=== PATIENT | female | born 1960 | race Caucasian/White ===

== ENCOUNTER → 2016-11-13 | Outpatient (CLI) | payer BC ==
--- NOTE | 2016-11-14 09:27 | WWHP ---
DATE OF SERVICE: 11/13/2016 CHIEF COMPLAINT: The patient is here for her routine gynecologic exam and mammogram. HPI: This is a 56-year-old, G2, P2 with an LMP of 2006. The patient is without gynecologic complaints. PAST MEDICAL HISTORY: Osteopenia, postural vertigo and elevated cholesterol. Her primary care physician is Dr. Ma. Medications are unchanged from 10/19/2014 H&P. Allergies to CODEINE. PAST SURGICAL HISTORY: Parathyroid tumor removed in the past; laparoscopic tubal ligation; colonoscopy x3 and her most recent one was in 2012. SOCIAL HISTORY: She denies tobacco and drug use and has about 1 to 2 alcoholic drinks per week. 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 FAMILY HISTORY: Mother and grandfather had CVA. Sister also had a CVA. Grandmother had an OH. Father had pancreatic cancer. REVIEW OF SYSTEMS: Weight has been stable. RESPIRATORY: She is getting over a cold. She denies cardiac or GI problems. PHYSICAL EXAM: Blood pressure 131/79. Height 5 feet 1-1/2 inches. Weight 146 pounds. Temperature 98.5, pulse 69. This is a well-developed, well-nourished white female who is alert and oriented x3 in no acute distress. HEENT is within normal limits. NECK: Supple without mass or thyromegaly. CHEST AND LUNGS: Clear to auscultation. HEART: Regular rate and rhythm. Breasts are without mass or discharge. Axillary exam is negative for adenopathy. BACK: Negative for CVA tenderness. ABDOMEN: Soft, nontender, without palpable masses. PELVIC EXAM: External genitalia reveals mild atrophy without lesions. Cervix and vagina reveal mild atrophy without lesions. There is no evidence of prolapse. The uterus is midposition, nongravid size and nontender. There are no palpable adnexal masses or tenderness. Rectovaginal exam is negative for mass or tenderness and is negative for occult blood. EXTREMITIES: Nontender. IMPRESSION: 1. A 56-year-old menopausal female with normal gynecologic exam. 2. History of osteopenia. 3. The patient continues to use HRT for menopausal symptoms as prescribed by Dr. Luzmaria Barreto. PLAN: 1. Pap smear was performed. 2. Self breast examination was discussed with the patient. 3. Mammogram will be done today. 4. Osteoporosis prevention was discussed. Bone density screening is recommended and a slip was given to the patient for this. 5. She will return in one year.
--- NOTE | 2016-11-15 11:39 | MM ---
Reason for exam: screening (asymptomatic). Last mammogram was performed 1 year and 1 month ago. History: Patient is postmenopausal. Took hormonal contraceptives for 3 months beginning at age 19. Took estrogen for 2 years 7 months. Taking progesterone for 5 years. Physical Findings: A clinical breast exam by your physician is recommended on an annual basis and results should be correlated with mammographic findings. MG Screening Mammo w CAD Bilateral CC and MLO view(s) were taken. Prior study comparison: October 11, 2015, bilateral MG screening mammo w CAD. October 19, 2014, bilateral MG screening mammo w CAD. October 13, 2013, bilateral digital screening mammo w/CAD. The breast tissue is heterogeneously dense. This may lower the sensitivity of mammography. No significant changes when compared with prior studies. ASSESSMENT: Negative, BI-RAD 1 RECOMMENDATION: Routine screening mammogram of both breasts in 1 year.
== END | disposition home or self-care (01) ==
LOC: WWCWWP 15:49
PROVIDERS: ATTEND Obstetrics & Gynecology
DX: Z12.31 Encounter for screening mammogram for malignant neoplasm of breast (principal)

== ENCOUNTER → 2017-01-24 | Outpatient (CLI) | payer BC ==
--- NOTE | 2017-01-24 22:06 | MR ---
EXAMINATION TYPE: MR shoulder RT wo con DATE OF EXAM: 01/24/2017 COMPARISON: Right shoulder 11/06/2016 HISTORY: Right shoulder Pain TECHNIQUE: Multiplanar, multisequence imaging of the right shoulder is performed without contrast. FINDINGS: Rotator Cuff: There is abnormal thickening of the rotator cuff, abnormal increased signal within the substance suggestive of tendinosis possible partial thickness tear posteriorly, underlying geodes pre sent in the humeral head. No jacklyn rotator cuff tear is present. Acromioclavicular Joint: Hypertrophic change of the acromioclavicular joint causes mass effect on the musculotendinous junction of supraspinatus, fluid signal present in the subacromial subdeltoid bursa , there is a distal acromial spur. Glenohumeral Joint: Intact Labrum: The labrum appears grossly intact given limitation of non-arthrogram study. Biceps Tendon: Fluid signal is present along the long head of biceps tendon shows normal position Bone marrow signal: Essentially maintained other than previously described Other: No additional significant abnormality is appreciated. IMPRESSION: Tendinosis, there may be a partial tear posteriorly of the rotator cuff which is small. Correlate for impingement. Additional findings above.
== END | disposition home or self-care (01) ==
LOC: RADMRIMAIN 20:33
PROVIDERS: ATTEND Orthopaedic Surgery
DX: M67.813 Other specified disorders of tendon, right shoulder (principal)

== ENCOUNTER → 2017-06-26 | Day surgery (SDC) | payer BC ==
[2017-06-21 16:19] VITALS: BMI 26.6
--- NOTE | 2017-06-25 16:19 | HP ---
HISTORY AND PHYSICAL REASON FOR ADMISSION: Surgery is 06/26/2017. Maricarmen Harper is a 57-year-old patient seen with progressive right shoulder pain. We discussed treatment options. She elected post right shoulder arthroscopy. Consent was obtained. PAST MEDICAL HISTORY: Hypothyroidism. PAST SURGICAL HISTORY: Tubal ligation. MEDICATIONS: Thyroid and vitamins. ALLERGIES: CODEINE. SOCIAL HISTORY: Patient denies tobacco use. PHYSICAL EVALUATION OF THE RIGHT SHOULDER: Flexion 170 degrees, abduction 170 degrees, external rotation 50 degrees with some mild weakness. There is tenderness along the anterolateral acromion and rotator cuff insertion site. Impingement positive 100 degrees. Distal neurovascular exam is intact. RADIOGRAPHS: Right shoulder radiographs revealed a type 2 anterior acromion and acromioclavicular joint osteoarthritis. An MRI of right shoulder revealed impingement with partial rotator cuff tear. IMPRESSION: Right shoulder impingement with partial rotator cuff tear. PLAN: Right shoulder arthroscopy with subacromial decompression, possible arthroscopic rotator cuff repair, possible Ary procedure and debridement. Surgery 06/26/2017. MMODL / IJN: [id number] /
[~2017-06-26] MED LIST: DEXAMETHASONE SOD PHOSPHATE 10 MG/ML 1 ML VIAL IV ONE; HYDROmorphone 0.5 MG/0.5 ML SYRINGE IVP PRN; LACTATED RINGERS 1,000 ML IV SCH; LIDOCAINE 1% 20 ML VIAL (10MG/ML) FOR IV START INTRADERMA ONE; LIDOCAINE 1% 20 ML VIAL (10MG/ML) FOR IV START INTRADERMA PRN; LIDOCAINE 1% INJ 10MG/ML (20 ML MDV) ONE; LIDOCAINE 2%-EPI 1:100,000 20 ML VIAL ONE; MIDAZOLAM 2 MG/2 ML VIAL IV PRN; MIDAZOLAM 2 MG/2 ML VIAL ONE; ONDANSETRON 4 MG/2 ML VIAL IVP ONE; ONDANSETRON 4 MG/2 ML VIAL ONE; PROPOFOL 10 MG/ML 20 ML VIAL IV ONE; ROPIVACAINE 5 MG/ML 30 ML VIAL ONE; SCOPOLAMINE 1.5MG/72HR PATCH TRANSDERM ONE; SUCCINYLCHOLINE CHLORIDE 100 MG/5 ML SYR IV ONE; ceFAZolin IN SWFI 2 GM/20 ML SYRINGE IVP ONE; ePHEDrine SULFATE/0.9% NACL/PF 50 MG/5 ML SYRINGE IV ONE; fentaNYL (PF) 50 MCG/ML 2 ML AMP ONE
--- NOTE | 2017-06-26 12:42 | P.OP ---
Date of Procedure: 06/26/17 Preoperative Diagnosis: Right shoulder impingement Postoperative Diagnosis: 1. Right shoulder rotator cuff tear 2. Right shoulder impingement 3. Right shoulder acromioclavicular joint osteoarthritis 4. Right shoulder partial biceps tendon tear 5. Right shoulder superficial anterior labral tear Procedure(s) Performed: 1. Right shoulder arthroscopic rotator cuff repair 2. Right shoulder arthroscopic subacromial decompression 3. Right shoulder arthroscopic Ary procedure 4. Right shoulder arthroscopic biceps tenotomy 5. Right shoulder arthroscopic debridement labral tear Implants: 1-5.5 peek anchor Anesthesia: GETA, regional (Interscalene block) Surgeon: Jesus Tran Sewer Inspector #1: Fran Patel Estimated Blood Loss (ml): 10 Pathology: none sent Condition: stable Disposition: PACU Indications for Procedure: 57-year-old patient seen with progressive right shoulder pain. After treatment options were discussed, she elected to proceed with arthroscopy. Operative Findings: See description of procedure Description of Procedure: Patient underwent a shoulder block by department of anesthesia. The patient was then taken to the operative suite. The patient underwent a general anesthetic by the department of anesthesia. The patient was placed into a lateral position and secured. There was appropriate padding of the bony prominence. Right shoulder was then prepped and draped in normal sterile orthopedic fashion. We placed the extremity in 10 pounds of longitudinal traction. A posterior incision was now made for a posterior working portal site. The trocar and cannula were inserted into the glenohumeral joint. Arthroscopy was initiated. Spinal needle was now inserted anteriorly, to ascertain the anterior working portal site. An incision was now made in that area, a trocar was inserted followed by a probe. There was superficial tearing noted of the anterior and superior labrum. There was partial tearing long head biceps tendon. Grade 1 chondral malacia changes of the glenoid but no osteochondral tears. The posterior and inferior labrum were intact. There were no loose bodies. I performed an arthroscopic biceps tenotomy. I debrided the labral tears down to stable tissue. The residual labrum was probed and found to be stable. Instruments removed from the glenohumeral joint. Utilizing the posterior working portal site, the trocar and cannula were inserted into the subacromial space. Arthroscopy initiated. I made an incision 2 fingerbreadths lateral to the acromion. I introduced my trocar followed by my [employer]throCare ablator. I now began ablating thick subacromial bursal tissue, which exposed the undersurface of the anterior acromion. This was diminished subacromial space. There was a very prominent anterior acromion. A motorized bur was introduced and a subacromial decompression was performed. I also excised some osteophytes off the inferior aspect of the distal clavicle. The AC joint was visualized and noted to be fairly arthritic. Our motorized bur was introduced in the anterior portal site and a Ary procedure was performed without difficulty, decompressing the AC joint nicely. I turned my attention to the rotator cuff. We noted some partial tearing distal supraspinatus. We probed the area and noted an obvious through and through perforation. I used a motorized shaver to debride the area getting down to stable rotator cuff tendon tissue. We had approximate 1-1.5 cm tear freely mobile over the footprint. I abraded the footprint with a motorized bur. I introduced 2 everted mattress sutures through good bites of rotator cuff tendon I repaired the tendon utilizing one single 5.5 peek anchor compressing the tendon along the footprint very nicely. The suture limbs were clipped. We had a good stable repair. Instruments now removed from the portal sites. All portal sites were approximated with nylon suture. Sterile dressings were applied followed by a shoulder immobilizer. Shashank TIMMONS assisted with the procedure. The patient was awakened, transferred to a bed, and taken to recovery in stable condition.
[2017-06-26 12:49] VITALS: TEMP 96.9
[2017-06-26 13:32] VITALS: RESP 16
[2017-06-26 14:13] VITALS: BP 120/62; PULSE 63
--- NOTE | 2017-06-26 17:29 | P.ONQ ---
Anesthesiology Proc Note - PNB - Peripheral Nerve Block Performed Right Interscalene Indication: Acute Post-Operative Pain, Requested by physician (Dr Tran) Sedation Type: Sedate with meaningful contact maintained Preparation: Sterile Prep Position: Supine Needle Types: Other (see comment) (Ellen) Needle Size: 50mm (2") Needle Gauge: 20 Injectate: 2.0% Lidocaine (see comment for volume) (Ropivicaine 0.5% 14cc, Lidocaine 2% 14cc, 1:100,000 epi) Blood Aspirated: No Pain Paresthesia on Injection Noted: No Resistance on Injection: Normal Events: Uneventful and Well Tolerated
== END | disposition home or self-care (01) ==
LOC: OR 08:51
PROVIDERS: ATTEND Orthopaedic Surgery
DX: M75.101 Unspecified rotator cuff tear or rupture of right shoulder, not specified as traumatic (principal); M25.811 Other specified joint disorders, right shoulder; S46.111A Strain of muscle, fascia and tendon of long head of biceps, right arm, initial encounter; S43.401A Unspecified sprain of right shoulder joint, initial encounter; X58.XXXA Exposure to other specified factors, initial encounter; M94.211 Chondromalacia, right shoulder; M25.711 Osteophyte, right shoulder; E03.9 Hypothyroidism, unspecified; Z79.899 Other long term (current) drug therapy; Z88.5 Allergy status to narcotic agent
CPT/HCPCS: 64415; 29826; 29827; 29824; C1713; J2250; J1100; J0690; J2405; J2001; J3010; J2795; J0330; J2704

== ENCOUNTER → 2017-12-10 | Outpatient (CLI) | payer BC ==
[2017-12-10 08:25] VITALS: BP 109/74; PULSE 69; RESP 16; TEMP 98.1; BMI 26.6
--- NOTE | 2017-12-10 08:54 | P.HPOB ---
History of Present Illness H&P Date: 12/10/17 Chief Complaint: The patient is here for her routine gynecologic exam and mammogram. This is a 57-year-old with an LMP of 2006. The patient is without gynecologic complaints and denies any postmenopausal bleeding. Review of Systems She has lost 5 pounds over the last year. She denies respiratory, cardiac, or G.I. problems. Past Medical History Past Medical History: Hyperlipidemia (Diet controlled), Osteoarthritis (OA), Thyroid Disorder (Hypothyroid) Additional Past Medical History / Comment(s): benign postural vertigo, parathyroid tumor, and osteopenia. 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 She had to vaginal deliveries. 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 - Past Family History Father Family Medical History: Cancer Additional Family Medical History / Comment(s): pancreas cancer Mother Family Medical History: CVA/TIA Medications and Allergies Home Medications Medication Instructions Recorded Confirmed Type 7-Keto Dhea /Pregnenolone 1 cap PO DAILY 01/21/14 06/26/17 History Bi-Est 1 applic TOPICAL DAILY 01/21/14 06/26/17 History Multivitamins, Thera [Multivitamin] 1 each PO DAILY 01/21/14 06/21/17 History Progesterone S R 165 mg PO HS 01/21/14 06/26/17 History Thyroid,Pork [[place] Thyroid] 30 mg PO DAILY 01/21/14 06/21/17 History Fish Oil/Dha/Epa [Fish Oil 1,200 1 each PO DAILY 06/21/17 06/21/17 History mg Fish Oil] Testosterone Cream 0.75 mg TOPICAL DAILY 06/21/17 06/26/17 History Hydrocodone/Acetaminophen [[place] 1 each PO Q6HR PRN #30 tab 06/26/17 Rx 5-325] Ondansetron HCl [Zofran] 4 mg PO DIRECTED PRN #30 tablet 06/26/17 Rx Allergies Allergy/AdvReac Type Severity Reaction Status Date / Time codeine AdvReac Nausea Verified 06/26/17 09:10 Exam - Vital Signs Vital signs: Vital Signs Temp Pulse Resp BP 12/10/17 08:06 98.1 F 69 16 109/74 Intake and Output 12/09/17 12/10/17 12/10/17 22:59 06:59 14:59 Other: Weight 63.957 kg Height 5'1", BMI 26.6. This is a well-developed well-nourished white female who is alert and oriented times 3 in no acute distress. HEENT: Within normal limits. NECK: Supple without mass or thyromegaly. CHEST AND LUNGS: Clear to auscultation. HEART: Regular rate and rhythm. BREASTS: Are without mass or discharge. AXILLARY EXAM: Negative for adenopathy. BACK: Negative for CVA tenderness. ABDOMEN: Soft, nontender, without palpable masses. PELVIC EXAM: Normal external genitalia with mild atrophy. Cervix and vagina appear normal with mild atrophy. There is no unusual discharge. There is no evidence of prolapse. The uterus is midposition, nongravid size and nontender. There are no palpable adnexal masses or tenderness. RECTAL EXAM: rectovaginal exam is negative for mass or tenderness and is negative for occult blood. EXTREMITIES: Nontender. There is a benign appearing mall on the backside of the right upper arm that is benign appearing and measures approximately 8 mm. She states she will be seeing Dr. Gabriel to have this checked out. IMPRESSION: 1. 57-year-old menopausal female with normal gynecologic exam. 2. History of osteopenia PLAN: 1. Smear was deferred since she had a normal one last year. 2. Self breast awareness was discussed. 3. Screening mammogram will be done today. 4. Osteoporosis prevention was discussed. We will repeat her bone density test in approximately 2 years since her last one was done in July 2017. 5. She will return one year.
--- NOTE | 2017-12-12 11:28 | MM ---
Reason for exam: screening (asymptomatic). Last mammogram was performed 1 year and 1 month ago. History: Patient is postmenopausal. Took hormonal contraceptives for 3 months beginning at age 19. Took estrogen for 2 years 7 months. Taking progesterone for 5 years. Physical Findings: A clinical breast exam by your physician is recommended on an annual basis and results should be correlated with mammographic findings. MG Screening Mammo w CAD Bilateral CC and MLO view(s) were taken. Prior study comparison: November 13, 2016, bilateral MG screening mammo w CAD. October 11, 2015, bilateral MG screening mammo w CAD. The breast tissue is heterogeneously dense. This may lower the sensitivity of mammography. Global asymmetry right upper outer quadrant. No significant changes when compared with prior studies. ASSESSMENT: Negative, BI-RAD 1 RECOMMENDATION: Routine screening mammogram of both breasts in 1 year.
== END | disposition home or self-care (01) ==
LOC: WWCWWP 08:05
PROVIDERS: ATTEND Obstetrics & Gynecology
DX: Z12.31 Encounter for screening mammogram for malignant neoplasm of breast (principal)
CPT/HCPCS: 77067

== ENCOUNTER → 2019-01-21 | Outpatient (CLI) | payer BC ==
[2019-01-21 10:51] VITALS: BP 132/83; PULSE 61; RESP 16; TEMP 97.6; BMI 27.2
--- NOTE | 2019-01-21 11:48 | P.HPOB ---
History of Present Illness H&P Date: 01/21/19 Chief Complaint: The patient is here for her routine gynecologic exam and ma mmogram. This is a 50-year-old with an LMP of 2006. The patient denies any postmenopausal bleeding. She has been noticing slight urinary leakage when her bladder is full and when she sneezes. She is otherwise without complaints. Review of Systems The patient has gained 8 pounds over the last year. She denies respiratory, cardiac, or G.I. problems. Past Medical History Past Medical History: Hyperlipidemia, Osteoarthritis (OA), Thyroid Disorder Additional Past Medical History / Comment(s): benign postural vertigo, parathyroid tumor, and osteopenia. 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 She had to vaginal deliveries. History of Any Multi-Drug Resistant Organisms: None Reported Past Surgical History: Tubal Ligation Additional Past Surgical History / Comment(s): Parathyroid tumor removed. 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 - Past Family History Father Family Medical History: Cancer Additional Family Medical History / Comment(s): pancreas cancer Mother Family Medical History: CVA/TIA Sister(s) Family Medical History: CVA/TIA Medications and Allergies Home Medications Medication Instructions Recorded Confirmed Type 7-Keto Dhea /Pregnenolone 1 cap PO DAILY 01/21/14 06/26/17 History Bi-Est 1 applic TOPICAL DAILY 01/21/14 06/26/17 History Multivitamins, Thera [Multivitamin] 1 each PO DAILY 01/21/14 06/21/17 History Progesterone S R 165 mg PO HS 01/21/14 06/26/17 History Thyroid,Pork [[place] Thyroid] 45 mg PO DAILY 01/21/14 06/21/17 History Fish Oil/Dha/Epa [Fish Oil 1,200 1 each PO DAILY 06/21/17 06/21/17 History mg Fish Oil] Testosterone Cream 0.75 mg TOPICAL DAILY 06/21/17 06/26/17 History Calcium Carbonate [Calcium] 600 mg PO 01/21/19 History Cholecalciferol (Vitamin D3) 2,000 unit PO 01/21/19 History [Vitamin D3] Allergies Allergy/AdvReac Type Severity Reaction Status Date / Time codeine AdvReac Nausea Verified 01/21/19 10:57 Exam Vital Signs Temp Pulse Resp BP Pulse Ox 01/21/19 10:45 97.6 F 61 16 132/83 98 Intake and Output 01/20/19 01/21/19 01/21/19 22:59 06:59 14:59 Other: Weight 67.585 kg Height 5'2", weight 149 pounds, BMI 27.3. This is a well-developed well-nourished white female who is alert and oriented times 3 in no acute distress. HEENT: Within normal limits. NECK: Supple without mass or thyromegaly. CHEST AND LUNGS: Clear to auscultation. HEART: Regular rate and rhythm. BREASTS: Are without mass or discharge. AXILLARY EXAM: Negative for adenopathy. BACK: Negative for CVA tenderness. ABDOMEN: Soft, nontender, without palpable masses. PELVIC EXAM: Normal external genitalia with mild atrophy. Cervix and vagina appear normal with mild atrophy. There is no unusual discharge. There is no evidence of prolapse. The uterus is midposition, nongravid size and nontender. There are no palpable adnexal masses or tenderness. RECTAL EXAM: rectovaginal exam is negative for mass or tenderness and is negative for occult blood. EXTREMITIES: Nontender. IMPRESSION: 1. 58-year-old menopausal female with normal gynecologic exam. 2. Mild stress urinary incontinence with full bladder and coughing or sneezing. There are no significant physical findings at this time. 3. History of osteopenia. PLAN: 1. Pap smear was performed. 2. Self breast awareness was discussed with the patient. 3. Screening mammogram will be done today. 4. Osteoporosis prevention was discussed. I have stressed the importance of adequate calcium, vitamin D and regular exercise. Recommended amounts of calciu m and vitamin D were also discussed. Her last bone density test was done a little more than one year ago. I have recommended that she do this after approximate 2 years. She would like to do this next year at her annual exam. 5. We have discussed Kegal exercises and timed avoids. Instructions were given to the patient on these. She will try to do sets of 20 Kegal's TID. 6.She was advised to return in one year for her annual well woman exam.
--- NOTE | 2019-01-22 09:35 | MM ---
Reason for exam: screening (asymptomatic). Last mammogram was performed 1 year and 1 month ago. History: Patient is postmenopausal. Took hormonal contraceptives for 3 months beginning at age 19. Took estrogen for 2 years 7 months. Taking progesterone for 5 years. Physical Findings: A clinical breast exam by your physician is recommended on an annual basis and results should be correlated with mammographic findings. MG Screening Mammo w CAD Bilateral CC and MLO view(s) were taken. Prior study comparison: December 10, 2017, bilateral MG screening mammo w CAD. November 13, 2016, bilateral MG screening mammo w CAD. The breast tissue is heterogeneously dense. This may lower the sensitivity of mammography. No significant changes when compared with prior studies. ASSESSMENT: Benign, BI-RAD 2 RECOMMENDATION: Routine screening mammogram of both breasts in 1 year.
--- NOTE | 2019-01-27 18:38 | P.PN ---
Progress Note - Text Progress Note Date: 01/27/19 OUTPATIENT FOLLOW-UP NOTE TEST(S)/RESULTS: test results from 01/21/2019 include negative Pap smear and benign mammogram. METHOD OF NOTIFICATION: the patient was notified by phone. PATIENT COMMENTS: the patient is happy to hear these results. DIAGNOSIS: negative Pap smear and benign mammogram. DISCUSSION: PLAN: the patient is to return in one year for her annual well woman exam.
== END ==
LOC: WWCWWP 10:38
PROVIDERS: ATTEND Obstetrics & Gynecology
DX: Z12.31 Encounter for screening mammogram for malignant neoplasm of breast (principal)
CPT/HCPCS: 77067

== ENCOUNTER 2019-03-04 09:39 | Day surgery (SDC) | payer BC ==
[2019-03-02 10:46] VITALS: BMI 27.3
[~2019-03-04 09:39] MED LIST changes: -DEXAMETHASONE SOD PHOSPHATE 10 MG/ML 1 ML VIAL IV ONE; -HYDROmorphone 0.5 MG/0.5 ML SYRINGE IVP PRN; -LIDOCAINE 1% 20 ML VIAL (10MG/ML) FOR IV START INTRADERMA ONE; -LIDOCAINE 1% INJ 10MG/ML (20 ML MDV) ONE; -LIDOCAINE 2%-EPI 1:100,000 20 ML VIAL ONE; -MIDAZOLAM 2 MG/2 ML VIAL IV PRN; -MIDAZOLAM 2 MG/2 ML VIAL ONE; -ONDANSETRON 4 MG/2 ML VIAL IVP ONE; -ONDANSETRON 4 MG/2 ML VIAL ONE; -PROPOFOL 10 MG/ML 20 ML VIAL IV ONE; -ROPIVACAINE 5 MG/ML 30 ML VIAL ONE; -SCOPOLAMINE 1.5MG/72HR PATCH TRANSDERM ONE; -SUCCINYLCHOLINE CHLORIDE 100 MG/5 ML SYR IV ONE; -ceFAZolin IN SWFI 2 GM/20 ML SYRINGE IVP ONE; -ePHEDrine SULFATE/0.9% NACL/PF 50 MG/5 ML SYRINGE IV ONE; -fentaNYL (PF) 50 MCG/ML 2 ML AMP ONE
[2019-03-04 10:55] VITALS: TEMP 98.2
[2019-03-04] MEDS ORDERED: PROPOFOL 10 MG/ML 20 ML VIAL IV ONE (11:07)
[2019-03-04] MEDS ORDERED: LIDOCAINE 1% INJ 10MG/ML (20 ML MDV) ONE (11:07)
--- NOTE | 2019-03-04 11:26 | P.PCN ---
Date of Procedure: 03/04/19 Procedure(s) Performed: BRIEF HISTORY: Patient is a 58-year-old pleasant white female scheduled for an elective colonoscopy as a part of evaluation of prior history of colon polyps. Her last colonoscopy was 5 years ago. PROCEDURE PERFORMED: Colonoscopy. PREOPERATIVE DIAGNOSIS: History of colon polyps. IV sedation per Anesthesia. PROCEDURE: After informed consent was obtained, the patient, was brought into the endoscopy unit. IV sedation was administered by Anesthesia under continuous monitoring. Digital rectal examination was normal. Initially the Olympus CF-160 flexible video colonoscope was then inserted in the rectum, gradually advanced into the cecum without any difficulty. Careful examination was performed as the scope was gradually being withdrawn. Ileocecal valve and the appendiceal orifice were visualized and appeared normal. Prep was excellent. Mucosa of the cecum, ascending colon, transverse colon, descending colon, sigmoid colon, and rectum appeared normal. Scattered sigmoid diverticulosis. Retroflexion was performed in the rectum and no lesions were seen. The patient tolerated the procedure well. IMPRESSION: Normal-appearing colon from rectum to cecum with no evidence of colorectal neoplasia Scattered sigmoidal diverticulosis . RECOMMENDATIONS: Findings of this examination were discussed with the patient as well as a family. She was advised to have a repeat screening colonoscopy in 5 years from now because of the prior history of colon polyps.
[2019-03-04 11:32] VITALS: RESP 18
[2019-03-04 11:55] VITALS: BP 122/67; PULSE 50
== END 2019-03-04 12:18 | disposition home or self-care (01) ==
LOC: ORWHC2ENDO 09:39
PROVIDERS: ATTEND Internal Medicine Gastroenterology
DX: Z12.11 Encounter for screening for malignant neoplasm of colon (principal); Z86.010 Personal history of colon polyps; K57.30 Diverticulosis of large intestine without perforation or abscess without bleeding; Z88.5 Allergy status to narcotic agent; E07.9 Disorder of thyroid, unspecified; E78.5 Hyperlipidemia, unspecified; M19.90 Unspecified osteoarthritis, unspecified site; Z79.899 Other long term (current) drug therapy
CPT/HCPCS: J2001; J2704; G0105; 45378

== ENCOUNTER 2019-05-28 09:50 | Day surgery (SDC) | payer BC ==
[2019-05-26 12:20] VITALS: BMI 27.3
--- NOTE | 2019-05-27 13:33 | HP ---
HISTORY AND PHYSICAL Surgery is 05/28/2019. Maricarmen Harper is a 59-year-old patient seen with progressive left knee pain. We discussed treatment options. She elected to proceed with left knee arthroscopy. Consent was obtained her. PAST MEDICAL HISTORY: Her past medical history is hypothyroidism. PAST SURGICAL HISTORY: Tubal ligation, shoulder arthroscopy, hysterectomy. DAILY MEDICATIONS: 1. Thyroid. 2. Aspirin. 3. Vitamins. ALLERGIES: CODEINE. SOCIAL HISTORY: She denies tobacco use. PHYSICAL EXAMINATION: Physical evaluation of the left knee: Her range of motion 0-130. Mild effusion. Tenderness medial joint line. Positive medial Robby's. Ligaments are stable. Hip rotation is without pain. Distal neurovascular exam is intact. Radiographs of the left knee revealed mild osteoarthritic changes. The left knee MRI revealed abnormal signal to the posterior medial meniscus. IMPRESSION: 1. Internal derangement, left knee with meniscal tear versus osteochondral tear. 2. Hypothyroidism. PLAN: Left knee arthroscopy with partial meniscectomy and debridement. MMODL / IJN: [id number] /
[~2019-05-28 09:50] MED LIST changes: -LIDOCAINE 1% 20 ML VIAL (10MG/ML) FOR IV START INTRADERMA PRN
[2019-05-28] MEDS ORDERED: LIDOCAINE 1% 20 ML VIAL (10MG/ML) FOR IV START INTRADERMA ONE (10:15)
[2019-05-28] MEDS ORDERED: DEXAMETHASONE SOD PHOSPHATE 10 MG/ML 1 ML VIAL IV ONE (10:15)
[2019-05-28] MEDS ORDERED: ONDANSETRON 4 MG/2 ML VIAL IVP ONE (10:15)
[2019-05-28] MEDS ORDERED: SCOPOLAMINE 1.5MG/72HR PATCH TRANSDERM ONE (10:15)
[2019-05-28 10:23] VITALS: RESP 16
[2019-05-28] MEDS ORDERED: fentaNYL (PF) 50 MCG/ML 2 ML AMP ONE (10:36)
[2019-05-28] MEDS ORDERED: MIDAZOLAM 2 MG/2 ML VIAL ONE (10:36)
[2019-05-28] MEDS ORDERED: PROPOFOL 10 MG/ML 20 ML VIAL IV ONE (10:36)
[2019-05-28] MEDS ORDERED: LIDOCAINE 1% INJ 10MG/ML (20 ML MDV) ONE (10:36)
[2019-05-28] MEDS ORDERED: KETOROLAC 30 MG/ML 1 ML VIAL ONE (10:36)
[2019-05-28] MEDS ORDERED: BUPIVACAINE (PF) 0.25% 30 ML VIAL INTRAARTIC ONE (11:06)
[2019-05-28 11:14] VITALS: TEMP 97.9
--- NOTE | 2019-05-28 11:20 | P.OP ---
Date of Procedure: 05/28/19 Preoperative Diagnosis: Internal derangement left knee Postoperative Diagnosis: 1. Tear medial meniscus left knee 2. Grade 3 chondromalacia patella left knee 3. Reactive synovitis medial and suprapatellar compartments left knee Procedure(s) Performed: 1. Arthroscopic partial medial meniscectomy left knee 2. Arthroscopic chondroplasty patella left knee 3. Arthroscopic partial synovectomy medial and suprapatellar compartments left knee Anesthesia: KYLEIGHA, local Surgeon: Jesus Tran Estimated Blood Loss (ml): 5 Pathology: none sent Condition: stable Disposition: PACU Indications for Procedure: 59-year-old patient seen with progressive left knee pain. After treatment options were discussed, she elected to proceed with arthroscopy. Operative Findings: See description of procedure Description of Procedure: Patient was taken to the operative suite. Patient underwent a general anesthetic by the department of anesthesia. Patient was given preoperative antibiotics. The left lower extremity was placed in a well-padded arthroscopic leg jones. The left leg was prepped and draped in the normal sterile orthopedic fashion. A lateral parapatellar and suprapatellar incision was made. Trochars were inserted. Arthroscopy was initiated. Suprapatellar pouch revealed diffuse thick reactive synovitis. The patellofemoral joint appeared to articulate congruently. There was grade 3 chondromalacia of the patella with some diffuse osteochondral tears present. The scope was guided into the medial gutter. No loose bodies or plica were identified The scope was then guided into the medial compartment. A medial parapatellar incision was made. Trocar inserted followed by probe. There was a radial tear involving posterior horn medial meniscus. There were some mild grade 1 chondral malacia changes the me dial compartment with no osteochondral tears present. There was thick reactive synovitis anteriorly. I performed a partial medial meniscectomy down to stable tissue. I performed a partial synovectomy decompressing reactive synovitis. The residual meniscus was stable. There was good decompression of the synovitis. Scope and probe were then guided into the intercondylar notch. Cruciates were identified, probed and found to be stable. The scope and probe were then guided into lateral compartment. Lateral meniscus was probed and found to be stable. There was no reactive synovitis in the lateral compartment. There was no significant chondromalacia present. The scope was in guided back into the suprapatellar compartment. I debrided some piecemeal fragments of meniscus I encountered. I performed a chondroplasty of the patella getting down to stable osteochondral tissue. I performed a partial synovectomy decompressing the reactive synovitis. The shaver was removed. Instruments were now removed from the joint. The joint was infiltrated with .25% Marcaine. Steri-Strips were applied to the portal sites. Sterile dressings were applied. The patient was placed into a MIHAI hose. No tourniquet was utilized. The patient was awakened, transferred to a bed and taken to recovery stable satisfactory condition.
[2019-05-28 12:13] VITALS: BP 120/62; PULSE 62
== END 2019-05-28 12:59 | disposition home or self-care (01) ==
LOC: OR 09:50
PROVIDERS: ATTEND Orthopaedic Surgery
DX: S83.242A Other tear of medial meniscus, current injury, left knee, initial encounter (principal); M22.42 Chondromalacia patellae, left knee; M65.862 Other synovitis and tenosynovitis, left lower leg; M19.90 Unspecified osteoarthritis, unspecified site; E03.9 Hypothyroidism, unspecified; H81.10 Benign paroxysmal vertigo, unspecified ear; Z79.1 Long term (current) use of non-steroidal anti-inflammatories (NSAID); Z79.82 Long term (current) use of aspirin; Z79.890 Hormone replacement therapy; Z79.899 Other long term (current) drug therapy; Z88.5 Allergy status to narcotic agent; Z87.891 Personal history of nicotine dependence; Z90.710 Acquired absence of both cervix and uterus; Z98.51 Tubal ligation status; Z98.890 Other specified postprocedural states; X58.XXXA Exposure to other specified factors, initial encounter
CPT/HCPCS: 29881; 29876; J2250; J1100; J2405; J0690; J2001; J3010; J1885; J2704

== ENCOUNTER → 2019-07-16 | Outpatient (CLI) | payer BC ==
--- NOTE | 2019-07-16 14:57 | US ---
EXAMINATION TYPE: US kidneys/renal and bladder DATE OF EXAM: 07/16/2019 COMPARISON: NONE CLINICAL HISTORY: R31.9 Hematuria. UTI EXAM MEASUREMENTS: Right Kidney: 9.2 x 4.5 x 4.3 cm Left Kidney: 10.0 x 4.0 x 3.6 cm Right Kidney: No hydronephrosis or masses seen Left Kidney: No hydronephrosis or masses seen Bladder: wnl Bilateral Jets seen: Yes There is no evidence for hydronephrosis at this point in time. No nephrolithiasis is seen. No morgan s are identified. The urinary bladder is anechoic. Bilateral ureteral jets are seen. IMPRESSION: Unremarkable renal ultrasound. No nephrolithiasis or hydronephrosis seen.
== END | disposition home or self-care (01) ==
LOC: RADUSWWP 14:08
PROVIDERS: ATTEND Internal Medicine
DX: R31.9 Hematuria, unspecified (principal)
CPT/HCPCS: 76770

== ENCOUNTER → 2020-04-21 | Outpatient (CLI) | payer BC ==
--- NOTE | 2020-04-22 11:06 | MM ---
Reason for exam: screening (asymptomatic). Last mammogram was performed 1 year and 3 months ago. History: Patient is postmenopausal. Took hormonal contraceptives for 3 months beginning at age 19. Took estrogen for 10 years 7 months. Taking progesterone for 5 years. Physical Findings: A clinical breast exam by your physician is recommended on an annual basis and results should be correlated with mammographic findings. MG Screening Mammo w CAD Bilateral CC, MLO, and XCCL view(s) were taken. Prior study comparison: January 21, 2019, bilateral MG screening mammo w CAD. December 10, 2017, bilateral MG screening mammo w CAD. There are scattered fibroglandular densities. No significant changes when compared with prior studies. ASSESSMENT: Benign, BI-RAD 2 RECOMMENDATION: Routine screening mammogram of both breasts in 1 year.
== END | disposition home or self-care (01) ==
LOC: RADMAMWWP 15:48
PROVIDERS: ATTEND Obstetrics & Gynecology
DX: Z12.31 Encounter for screening mammogram for malignant neoplasm of breast (principal)
CPT/HCPCS: 77067

== ENCOUNTER → 2021-04-25 | Outpatient (CLI) | payer BC ==
--- NOTE | 2021-04-26 12:35 | MM ---
Reason for exam: screening (asymptomatic). Last mammogram was performed 1 year ago. History: Patient is postmenopausal. Took hormonal contraceptives for 3 months beginning at age 19. Took estrogen for 10 years 7 months. Taking progesterone for 5 years. Physical Findings: A clinical breast exam by your physician is recommended on an annual basis and results should be correlated with mammographic findings. MG Screening Mammo w CAD Bilateral CC and MLO view(s) were taken. Prior study comparison: April 21, 2020, bilateral MG screening mammo w CAD. January 21, 2019, bilateral MG screening mammo w CAD. December 10, 2017, bilateral MG screening mammo w CAD. There are scattered fibroglandular densities. There is no discrete abnormality. ASSESSMENT: Negative, BI-RAD 1 RECOMMENDATION: Routine screening mammogram of both breasts in 1 year.
== END | disposition home or self-care (01) ==
LOC: RADMAMWWP 07:03
PROVIDERS: ATTEND Internal Medicine
DX: Z12.31 Encounter for screening mammogram for malignant neoplasm of breast (principal); Z78.0 Asymptomatic menopausal state
CPT/HCPCS: 77067

== ENCOUNTER → 2021-04-25 | Outpatient (CLI) | payer BC ==
--- NOTE | 2021-04-25 19:58 | BD ---
EXAMINATION TYPE: Axial Bone Density DATE OF EXAM: 04/25/2021 COMPARISON: 07/22/2017 CLINICAL HISTORY: Postmenopausal screening Height: 61.5 Weight: 155.1 FRAX RISK QUESTIONS: Alcohol (3 or more units per day): no Family History (Parent hip fracture): no Glucocorticoids (More than 3mos): no (Ex: prednisone, prednisolone, methylprednisolone, dexamethasone, and hydrocortisone). History of Fracture in Adulthood: yes Secondary Osteoporosis: 1. Type 1 Diabetes: no 2. Hyperthyroidism: no 3. Menopause before 45: no 4. Malnutrition: no 5. Chronic liver disease: no Rheumatoid Arthritis: no Current Tobacco Use: no RISK FACTORS HISTORY OF: Surgery to Spine/Hip(right/left)/Wrist (right/left): no Family History of Osteoporosis: yes Active: yes Diet low in dairy products/other sources of calcium: yes Postmenopausal woman: yes Take estrogen and/or progesterone medications: yes Lost more than 2 inches in height since high school: no MEDICATIONS: hormones Thyroid :Medications: amourthyroid How Lon years Additional History: EXAM MEASUREMENTS: Bone mineral densitometry was performed using the [employer] System. Bone mineral density as measured about the Lumbar spine is: ----- L1-L4(G/cm2): 0.998 T Score Values are as follows: ----- L2: -2.8 ----- L3: -1.3 ----- L4: -0.3 ----- L1-L4: -1.5 Bone mineral density has: increased 7.9 % since study of: 07.22.2017 Bone mineral density about the R hip (g/cm2): 0.968 Bone mineral density about the L hip (g/cm2): 0.902 T Score values are as follows: -----R Neck: -0.5 -----L Neck: -1.0 -----R Total: -0.7 -----L Total: -0.6 Bone mineral density has: decreased -1.4 % since study of: 07.22.2017 IMPRESSION: Osteopenia (T Score between -2.5 and -1). There is slightly increased risk of fracture and the patient may be considered for treatment. Re-Screen 2-5 years. NOTE: T-SCORE=SD OF THE YOUNG ADULT MEAN.
== END | disposition home or self-care (01) ==
LOC: RADBDWWP 07:05
PROVIDERS: ATTEND Internal Medicine
DX: Z13.820 Encounter for screening for osteoporosis (principal); M85.89 Other specified disorders of bone density and structure, multiple sites
CPT/HCPCS: 77080

== ENCOUNTER → 2021-08-04 | Outpatient (CLI) | payer BC ==
--- NOTE | 2021-08-28 12:01 | ECHOF ---
Referral Reason:R00.2 palpitations MEASUREMENTS -------- HEIGHT: 157.5 cm WEIGHT: 69.9 kg BP: IVSd: 1.1 cm (0.6 - 1.1) LVIDd: 4.1 cm (3.9 - 5.3) LVPWd: 1.0 cm (0.6 - 1.1) IVSs: 1.5 cm LVIDs: 2.4 cm LVPWs: 1.2 cm LAESV Index (A-L): 28.01 ml/m Ao Diam: 2.7 cm (2.0 - 3.7) AV Cusp: 1.9 cm (1.5 - 2.6) LA Diam: 2.6 cm (2.7 - 3.8) MV EXCURSION: 13.883 mm (> 18.000) MV EF SLOPE: 103 mm/s (70 - 150) EPSS: 2.3 cm MV E Evangelista: 0.91 m/s MV DecT: 209 ms MV A Evangelista: 0.99 m/s MV E/A Ratio: 0.91 AR PHT: 259 ms RAP: 5.00 mmHg RVSP: 14.41 mmHg FINDINGS -------- This was a technically good study. The left ventricular size is normal. Left ventricular wall thickness is normal. Overall left vent ricular systolic function is normal with, an EF between 55 - 60 %. The diastolic filling pattern is normal for the age of the patient 7.83. The right ventricle is normal in size. The left atrial size is normal. Normal LA size by volume 22+/-6 ml/m2. The right atrial size is normal. Interatrial and interventricular septum intact. The aortic valve is trileaflet and appears structurally normal. Trace amount of aortic regurgitatio n. The mitral valve is normal. There is trace mitral regurgitation. The tricuspid valve appears structurally normal. Trace tricuspid regurgitation present. Right antoine tricular systolic pressure is normal at < 35 mmHg. There is no pulmonic regurgitation present. The aortic root size is normal. Normal inferior vena cava with normal inspiratory collapse consistent with estimated right atrial pre ssure of 5 mmHg. There is no pericardial effusion. CONCLUSIONS -------- 1. The left ventricular size is normal. 2. Left ventricular wall thickness is normal. 3. Overall left ventricular systolic function is normal with, an EF between 55 - 60 %. 4. The diastolic filling pattern is normal for the age of the patient 7.83 5. Trace amount of aortic regurgitation. 6. There is trace mitral regurgitation. 7. Trace tricuspid regurgitation present. 8. There is no pericardial effusion. PATIENT ACCOUNTS MANAGER: Ericka Serrano RDCS
== END | disposition home or self-care (01) ==
LOC: RADECHMAIN 08:26
PROVIDERS: ATTEND Internal Medicine
DX: I08.3 Combined rheumatic disorders of mitral, aortic and tricuspid valves (principal)
CPT/HCPCS: 93306

== ENCOUNTER → 2021-09-11 | Outpatient (CLI) | payer BC ==
--- NOTE | 2021-10-13 10:13 | P.CEMON ---
This is a report on the 30 day event monitor on Maricarmen Harper Baseline EKG showed sinus rhythm with episodes of sinus tachycardia. Patient had several episodes of tachycardia. Some of the marked paroxysmal atrial tachycardia but most of them are atypical fibrillation with RVR. These episodes with atrial fibril lasted several hours. The longest episode happened on which started around 10:55 AM and lasted up to 2:02 PM he did. No pauses noted. No accompanying diary, no Final impression: #1. Sinus rhythm. #2. Episodes of paroxysmal atrial tachycardia. #3.. Paroxysmal atrial fibrillation, of variable duration. The longest episode documented is about 6 hours. #4. No ventricular arrhythmias. #5. No accompanying diary
== END | disposition home or self-care (01) ==
LOC: RADECHMAIN 07:42
PROVIDERS: ATTEND Internal Medicine
DX: I47.1 Supraventricular tachycardia (principal)
CPT/HCPCS: 93270

== ENCOUNTER → 2021-09-11 | Outpatient (CLI) | payer BC ==
--- NOTE | 2021-09-11 07:59 | US ---
EXAMINATION TYPE: US carotid duplex BILAT DATE OF EXAM: 09/11/2021 COMPARISON: 08/31/2015 CLINICAL HISTORY: 61-year-old female I65.23 carotid stenosis bilateral. Arrhythmia TECHNIQUE: Carotid duplex ultrasound examination. Indirect Doppler criteria is visualized. FINDINGS: EXAM MEASUREMENTS: RIGHT: Peak Systolic Velocity (PSV) cm/sec ----- Right CCA: 68.2 ----- Right ICA: 62.2 ----- Right ECA: 105.3 ICA/CCA ratio: 0.9 RIGHT: End Diastole cm/sec ----- Right CCA: 20.8 ----- Right ICA: 21.8 ----- Right ECA: 23.3 LEFT: Peak Systolic Velocity (PSV) cm/sec ----- Left CCA: 79.8 ----- Left ICA: 92.2 ----- Left ECA: 117.6 ICA/CCA ratio: 1.2 LEFT: End Diastole cm/sec ----- Left CCA: 20.4 ----- Left ICA: 37.9 ----- Left ECA: 22.8 VERTEBRALS (direction of flow): Right Vertebral: Antegrade Left Vertebral: Antegrade Rhythm: Normal Protector Plate Attacher notes: No significant stenosis IMPRESSION: No hemodynamically significant internal carotid artery stenosis on either side. Criteria for Assigning % of Stenosis / Diameter reduction (Estimation based on the indirect measurements of the internal carotid artery velocities (ICA PSV). 1. Normal (no stenosis)=ICA PSV < 125 cm/s: ratio < 2.0: ICA EDV<40 cm/s. 2. Less than 50% stenosis=ICA PSV < 125 cm/s: ratio < 2.0: ICA EDV<40 cm/s. 3. 50 to 69% stenosis=ICA PSV of 125 to 230 cm/s: ration 2.0 ? 4.0: ICA EDV 40-100 cm/s. 4. Greater than 70% stenosis to near occlusion= ICA PSV > 230 cm/s: ratio > 4.0: ICA EDV > 100 cm/s. 5. Near occlusion= ICA PSV velocities may be low or undetectable: variable ratio and ICA EDV. 6. Total occlusion=unable to detect flow.
== END | disposition home or self-care (01) ==
LOC: RADUSWWP 07:03
PROVIDERS: ATTEND Internal Medicine
DX: I65.23 Occlusion and stenosis of bilateral carotid arteries (principal)
CPT/HCPCS: 93880

== ENCOUNTER → 2021-12-06 | Outpatient (CLI) | payer BC ==
--- NOTE | 2021-12-07 07:08 | CA ---
Exercise Stress Test Report Name: Maricarmen Harper Exam Date: 12/06/2021 09:29 Exam Location: [place] Stress Ht (in): 61 Wt (lb): 154 BSA: 1.69 Ordering Phys: Juan Mosqueda DO Referring Phys: YODIT, Technologist: Isaac Collazo Age: 61 Gender: F : 1960 Procedure CPT: Indications: R06.02, I48.0 ICD-10 Codes: Patient History: Medications: Meds past 24 hrs: Pretest Chest Pain: No chest pain STRESS TEST [place] Protocol Exercise Duration (min:sec): 10:[address] Depressions (mm): Angina Score: Sparrow Score: Resting HR (bpm): 69 Peak HR (bpm): 158 Resting BP (mmHg): 136 / 84 Peak BP (mmHg): 209 / 73 MPHR: 158 Target HR: 134 % MPHR: 100 METS: 12.1 Total Dose: Peak Dose: Atropine: Double Product: 30927 BP Response: Stress Termination: TEST COMPLETE Stress Symptoms: DIFFICULTY IN BREATHING Stress Summary: ECG ANALYSIS Resting ECG: Stress ECG: CONCLUSIONS EKG revealed a normal sinus rhythm with no significant ST-T changes. Patient walked on a standard [place] protocol for 10 minutes and achieved a maximum heart rate of 158 bpm which is well above 85% of predicted maximal. Peak blood pressure was 209/73. Resting blood pressure was 136/84. Patient did not have angina. There were no EKG changes to indicate ischemia. The recovery feels he went into atrial fibrillation which revealed paroxysmal bursts and eventually was back in sinus rhythm towards the end of the recovery period. This is a negative stress test for ischemia with paroxysmal episodes of atrial fibrillation in that extremity. Dr. Tori Alarcon MD (Electronically Signed) Final Date: 07 December 2021 07:08
== END | disposition home or self-care (01) ==
LOC: RADNMMAIN 08:32
PROVIDERS: ATTEND Internal Medicine
DX: I48.0 Paroxysmal atrial fibrillation (principal)
CPT/HCPCS: 93017

== ENCOUNTER 2022-02-19 05:52 | Day surgery (SDC) | payer BC ==
[2022-02-14 16:15] VITALS: BMI 28.3
[~2022-02-19 05:52] MED LIST changes: -LACTATED RINGERS 1,000 ML IV SCH; +MIDAZOLAM 2 MG/2 ML VIAL IV PRN; +ONDANSETRON 4 MG/2 ML VIAL IVP ONE
[2022-02-19] MEDS ORDERED: SODIUM CHLORIDE 0.9% 1,000 ML IV ONE (06:41)
[2022-02-19] MEDS ORDERED: fentaNYL (PF) 50 MCG/ML 2 ML AMP IV PRN (07:00)
[2022-02-19] MEDS ORDERED: DEXAMETHASONE SOD PHOS (MDV) 100 MG/10 ML VIAL ONE (07:24)
[2022-02-19] MEDS ORDERED: ONDANSETRON 4 MG/2 ML VIAL ONE (07:24)
[2022-02-19] MEDS ORDERED: HEPARIN SODIUM,PORCINE 10,000 UNIT/ML 1 ML VIAL ONE (07:24)
[2022-02-19] MEDS ORDERED: PROPOFOL 10 MG/ML 20 ML VIAL IV ONE (07:24)
[2022-02-19] MEDS ORDERED: PROTAMINE SULFATE 10 MG/ML 5 ML VIAL IV ONE (07:24)
[2022-02-19] MEDS ORDERED: WATER FOR INJECTION, STERILE 10 ML VIAL IV ONE (07:24)
[2022-02-19] MEDS ORDERED: ePHEDrine 50 MG/ML 1 ML VIAL ONE (07:24)
[2022-02-19] MEDS ORDERED: MIDAZOLAM 2 MG/2 ML VIAL ONE (07:24)
[2022-02-19] MEDS ORDERED: fentaNYL (PF) 50 MCG/ML 2 ML AMP ONE (07:24)
[2022-02-19] MEDS ORDERED: SUCCINYLCHOLINE CHLORIDE 100 MG/5 ML SYR IV ONE (07:24)
[2022-02-19] MEDS ORDERED: PHENYLEPHRINE-0.9% NACL SYG 1,000 MCG/10 ML SYRINGE ONE (07:24)
--- NOTE | 2022-02-19 07:45 | P.HPCAR ---
History of Present Illness This is Dr. Rich dictating an H/P on this patient The patient was interviewed and examined IMPRESSION / ASSESSMENT: Paroxysmal atrial fibrillation RVR Often triggered with exercise Normal LV systolic function normal left atrial size RIGOBERTO VASC oral 1 History of hypothyroidism on treatment On ELIQUIS which she took today Minimal alcohol consumption Stable from a cardiovascular standpoint without any chest discomfort presyncope or syncope in the last week PLAN: Proceed with pulmonary vein isolation Continue ELIQUIS for at least 3 months post ablation Follow-up exercise stress testing after 3 months post ablation to evaluate for atrial fibrillation HPI Patient is had palpitations for many years Since fall there has been increased frequency and duration of episodes She has documented episodes of atrial fibrillation of exercise Event under shows frequent episodes of atrial fibrillation and atrial tachycardi a with RVR Minimal alcohol consumption At this time no fever chills cough No chest discomfort undue shortness of breath dizziness or presyncope or syncope in the last week ROS: No fever chills or rigors, no cough, phlegm or expectoration, no nausea, vomiting or diarrhea, no hematuria, dysuria, no musculoskeletal complaints, no strokes or seizures, no skin lesions. EXAMINATION: 120/2 mmHg, pulse rate in the 60s, afebrile 97.7F Breath sounds are clear no rhonchi no crackles Normal heart sounds normal S1 normal S2 No lower extremity edema No JVD REVIEW OF LABS, ECG & MEDICAL DATA Covid PCR negative Physical Exam Vitals: Vital Signs Temp Pulse Resp BP Pulse Ox 02/19/22 06:43 97.7 F 65 16 124/62 97 Intake and Output 02/18/22 02/19/22 02/19/22 22:59 06:59 14:59 Intake Total 50 Balance 50 Intake: IV 50 Other: Weight 71.1 kg Past Medical History Past Medical History: Atrial Fibrillation, GI Bleed, Hearing Disorder / Deafness, Hyperlipidemia, Osteoarthritis (OA), Thyroid Disorder Additional Past Medical History / Comment(s): Benign postural vertigo, hx parathyroid tumor, osteopenia, Diverticulosis, hard of hearing. History of Any Multi-Drug Resistant Organisms: None Reported Past Surgical History: Orthopedic Surgery, Tubal Ligation Additional Past Surgical History / Comment(s): Parathyroid tumor removed. Colonoscopies. Right shoulder surgery. Past Anesthesia/Blood Transfusion Reactions: Motion Sickness, Postoperative Nausea & Vomiting (PONV) Past Psychological History: No Psychological Hx Reported Smoking Status: Former smoker Past Alcohol Use History: Occasional Additional Past Alcohol Use History / Comment(s): Started smoking at age 16, quit at age 28, smoked 1/2ppd. Past Drug Use History: None Reported - Past Family History Father Family Medical History: Cancer Additional Family Medical History / Comment(s): Pancreatic cancer. Mother Family Medical History: CVA/TIA Sister(s) Family Medical History: CVA/TIA Physical Examination Vital Signs Temp Pulse Resp BP Pulse Ox 02/19/22 06:43 97.7 F 65 16 124/62 97 Intake and Output 02/18/22 02/19/22 02/19/22 22:59 06:59 14:59 Intake Total 50 Balance 50 Intake: IV 50 Other: Weight 71.1 kg Results Current Medications Generic Name Dose Route Start Last Admin Trade Name Freq PRN Reason Stop Dose Admin Fentanyl Citrate 50 mcg 02/19/22 07:00 Fentanyl (Pf) 50 Mcg/Ml 2 Ml Amp IV 02/19/22 23:00 Q3M PRN Phase I - Pain Control Sodium Chloride 1,000 mls @ 20 mls/hr 02/19/22 05:46 Saline 0.9% IV 03/21/22 05:47 .Q24H SUJIT Lactated Ringer's 1,000 mls @ 20 mls/hr 02/19/22 05:46 Lactated Ringers IV 03/21/22 05:47 .Q24H SUJIT Midazolam HCl 2 mg 02/19/22 05:46 Midazolam 2 Mg/2 Ml Vial IV 02/20/22 05:47 ONCE PRN Pre-Op Anxiety Intake and Output 02/18/22 02/19/22 02/19/22 22:59 06:59 14:59 Intake Total 50 Balance 50 Intake: IV 50 Other: Weight 71.1 kg
[2022-02-19] MEDS ORDERED: HEPARIN SOD,PORK IN 0.45% NACL 25,000 UNIT in 0.45% NACL 1 250ML.BAG IV ONE (08:15)
[2022-02-19] MEDS ORDERED: LIDOCAINE 1% INJ 10MG/ML (5 ML VIAL-PF) SQ ONE (08:15)
[2022-02-19] MEDS ORDERED: IOPAMIDOL-370 50ML BTL INJ ONE (10:03)
--- NOTE | 2022-02-19 10:41 | P.EPPROC ---
- EP Procedure Note Electrophysiology Procedure Note: PROCEDURE A. fib ablation/PVI with cryoablation DIAGNOSIS Atrial fibrillation, symptomatic, RESULT No left atrial appendage mass seen on intracardiac echo, normal LV function, interatrial septal aneurysm Successful A. fib ablation/pulmonary vein isolation of all veins using cryo-ablation with exit block Disassociated PV signal, anterior RSPV despite selective isolation of all branches of the right-sided veins Patient was spontaneously have bursts of atrial fibrillation at the start of the study. Initially these were long paroxysms, while at the end of the procedure she had much shorter paroxysms of A. fib The disassociated pulmonary vein signal in the RSPV was NOT the trigger for her A. fib No evidence for phrenic nerve injury despite the presence of phrenic nerve stimulation within the ostium of the RSPV Esophageal deflection YES, right-sided esophagus, deflected PROCEDURE DETAILS Patient was brought to the EP lab in a fasting state after obtaining written informed consent. Procedure performed under general anesthesia Esophagus was intubated. Esophageal temperature monitoring with circa catheter. Esophageal deflection with an endoscope to avoid hypothermia of the esophagus. After initial muscle relaxant use, muscle relaxants were not given thereafter in order to assess phrenic nerve during procedure. Patient prepped and draped as per protocol Cryo ablation-set up with standard preparation of the cryoablation tools done. Femoral Venous access obtained on the right and left groins and sheaths placed Diagnostic catheters for the high right atrium, phrenic nerve stimulation and pacing, His bundle, coronary sinus placed Intracardiac echo catheter placed. Long sheath placed in the right atrium Left and right transseptal catheterization performed under intracardiac echo guidance. Intravenous heparin with aCT above 300 Later, catheter positioning and balloon positioning in the left atrium and pulmonary veins, under intracardiac echo guidance Diagnostic EP study with coronary sinus pacing and recording Baseline measurements: Sinus cycle length 104 100 ms, DC interval 110 ms, QRS 93 and QT 440 ms HV interval 30 ms Sinus node recovery time at a pacing cycle length of 600 ms was 1146 ms Patient was spontaneously have bursts of atrial fibrillation at the start of the study. Initially these were long paroxysms, while at the end of the procedure she had much shorter paroxysms of A. fib Transseptal catheterization performed. This is a difficult transseptal catheterization on account of the interatrial septal aneurysm and is stiff fossa ovalis 2 different sites with attempted for successful transseptal catheterization performed Both sheaths were difficult to pass through but was done successfully at the end RA pressure 27/7/16 LA pressure 17/6/12 Transseptal catheterization performed with standard sheath. The cryoablation sheath was then placed with an over the wire exchange without any acute complications. The cryoablation balloon was placed in the office of each pulmonary vein and all 4 pulmonary veins were isolated. IV dye was injected to confirm occlusion. Goal: achieve complete occlusion of the pulmonary vein, achieve -30 degrees C at 30 seconds and achieve -40 degrees C at 60 seconds and a time to effect of less than 60 seconds. If not, the balloon was repositioned to obtain this result After completion of Cryoblation with durations from 180-240 seconds, entrance block was confirmed with the Attain circular catheter in a roving fashion around the antrum of the pulmonary veins Phrenic nerve pacing was performed from the SVC, right innominate vein area and diaphragm voltage was monitored. Diaphragmatic contractions were also monitored manually for strength of contraction. At the end of the procedure the Achieve catheter was once again used to check for entrance block Phrenic nerve stimulation was performed to confirm diaphragmatic stimulation the end of the procedure Cine fluoroscopy was performed at the very end of the procedure to confirm movement of both diaphragms with inspiration and expiration At the end of the procedure the patient was extubated Venous sheaths were removed and hemostasis assured with a closure device Complex left sided pulmonary venous anatomy Each branch of the left superior and left inferior pulmonary veins was isolated separately and successfully Left-sided veins are completely isolated Complex right pulmonary venous anatomy Right inferior pulmonary veins successfully isolated but each branch once again individually isolated Right superior vein was also very well occluded with excellent temperatures during cryoablation Despite that the disassociated signal remained in the anterior os of the RSP V Individual branches of the RSP V as well as cryoablation just outside the the RSP V, on the roof applied This is a long procedure on account of the difficulties with transseptal catheterization on account of her inter-atrial/fossa anatomy Ablation of individual branches of all pulmonary veins performed Left atrium mildly enlarged No acute complications at the end of the procedure. No pericardial effusion normal LV function PROCEDURES PERFORMED Diagnostic EP study CS pacing and recording Left and right transseptal catheterization Catheter the mapping of the tachycardia Intracardiac echocardiography Pulmonary vein isolation with transseptal and comprehensive EPS, 38098 Drug infusion, +[id number], Increase procedure services
--- NOTE | 2022-02-19 10:44 | P.PRLE ---
RE: LeroyMaricarmen Dear Isma Mrs. Harper underwent pulmonary vein isolation for management of paroxysmal atrial fibrillation She is a mildly enlarged left atrium and normal LV function However despite ablation the coronary veins she continued to have paroxysms of atrial fibrillation However, intraoperatively it was noted that these paroxysms was significantly shorter in duration than before completion of PVI I would continue anticoagulation for now for 3 months but I will also start her on flecainide 50 mg twice daily and reassess after 3-4 months Thank you for entrusting me with the care of the patient Warm regards Sincerely Kyle Rich
[2022-02-19] MEDS ORDERED: ACETAMINOPHEN IV (For NPO) 1,000 MG in EMPTY BAG 1 BAG IVPB ONE (11:00)
[2022-02-19] MEDS ORDERED: THYROID, PORK 30 MG TAB PO SCH (11:00)
[2022-02-19] MEDS: SODIUM CHLORIDE 0.9% 1,000 ML IV SCH (12:56)
[2022-02-19] MEDS: LACTATED RINGERS 1,000 ML IV SCH (12:58)
[2022-02-19] MEDS: ATORVASTATIN 40 MG TAB PO SCH (13:09)
[2022-02-19] MEDS ORDERED: FLECAINIDE 50 MG TAB PO STA (13:41)
[2022-02-19] MEDS: DILTIAZEM 125 MG in SODIUM CHLORIDE 0.9% 100 ML IV SCH (16:27)
--- NOTE | 2022-02-19 18:42 | P.PN ---
Progress Note - Text Patient underwent successful cryoablation of the pulmonary veins Prior to starting she was having long paroxysms of A. fib with RVR Following PVI she continued to have paroxysms of A. fib that were not initiated by the pulmonary veins However the duration of these episodes was much shorter I performed a 12-lead EKG postprocedure in the ESU This shows frequent PACs The PVC morphology is consistent and has an initial negative component in V1 followed by a sharp positive terminal component This is the arrhythmogenic PAC Suggest Suppressive antiarrhythmic drug therapy Flecainide 100 mg twice daily along with an oral AV node blocking drugs After 3-4 months if she continues to have paroxysms of A. fib then, arrhythmogenic PAC mapping and ablation will be recommended
[2022-02-19] MEDS ORDERED: APIXABAN 5 MG TAB PO SCH (21:00)
[2022-02-19] MEDS: METOPROLOL SUCCINATE (ER) 50 MG TAB.ER.24H PO SCH (22:18)
[2022-02-19] MEDS: FLECAINIDE 50 MG TAB PO SCH (22:18)
[2022-02-19] MEDS: ACETAMINOPHEN TAB 325 MG TAB PO PRN (23:14)
[2022-02-20] MEDS: ACETAMINOPHEN TAB 325 MG TAB PO PRN (04:28)
[2022-02-20] MEDS: DILTIAZEM 125 MG in SODIUM CHLORIDE 0.9% 100 ML IV SCH (07:22)
[2022-02-20] MEDS: SODIUM CHLORIDE 0.9% 1,000 ML IV SCH (07:23)
[2022-02-20] MEDS: LACTATED RINGERS 1,000 ML IV SCH (07:23)
[2022-02-20] MEDS: FLECAINIDE 50 MG TAB PO SCH (07:29)
[2022-02-20] MEDS: ATORVASTATIN 40 MG TAB PO SCH (07:29)
[2022-02-20] MEDS: METOPROLOL SUCCINATE (ER) 50 MG TAB.ER.24H PO SCH (07:29)
[2022-02-20 07:33] VITALS: TEMP 97.8
[2022-02-20] MEDS ORDERED: THYROID, PORK 30 MG TAB PO SCH (09:00)
[2022-02-20 11:25] VITALS: BP 96/64; PULSE 61; RESP 16
--- NOTE | 2022-02-20 16:39 | P.DS ---
Providers Attending physician: Kyle Rich [facility] Course: Ms. Harper is doing very well Yesterday following PVI she had runs of atrial tachycardia which was initiated by a monomorphic PA-C I started her on flecainide 100 mg twice daily and the PVCs and atrial fibrillation both was suppressed Yesterday, A. fib episodes have shortened but the ventricular rate is faster, following PVI Add a detailed discussion with her She has no chest discomfort dizziness lightheadedness Heart sounds are normal no rub no gallop Breath sounds are clear No rhonchi no crackles No lower extremity edema Groins of healed well Impression Paroxysmal atrial fibrillation both pulmonary venous as well as extrapulmonary invasion After VVI her atrial fibrillation episodes became shorter but continued The with induced repeatedly by a monomorphic PA-C. On lead V1, this PA-C has an initial brought negative component followed by a terminal positive sharp component Suppressed with flecainide 100 mg twice daily Plan Discharge home today Continue Toprol-XL 25 mg by mouth daily Flecainide 100 mg twice daily Continue ELIQUIS for at least 3 months Continue flecainide for at least 6 weeks 100 mg twice daily Follow-up with Dr. Mosqueda Following that about 6 weeks of reduced dose of flecainide to 50 mg twice daily Event monitoring after 6 weeks Decision regarding continuation of low-dose flecainide for suppression of post PACs and the atrial substrate Versus Mapping of the PACs as well as substrate ablation with septal and left atrial roof ablation I will see her again in about 3 months Plan - Discharge Summary Discharge Rx Participant: Yes New Discharge Prescriptions: New Flecainide [Tambocor] 50 mg PO Q12HR #180 tablet Discontinued Fish Oil/Dha/Epa [Fish Oil 1,200 mg Fish Oil] 1 each PO DAILY No Action Thyroid,Pork [[place] Thyroid] [facility] Cholecalciferol (Vitamin D3) [Vitamin D3] 2,000 - 4,000 unit PO DAILY Calcium Carbonate [Calcium] 600 mg PO DAILY Progesterone, Micronized [Progesterone] 190 mg PO DAILY Apixaban [Eliquis] 5 mg PO HS Hrt Pellet Insertion Thyroid, Pork [[place] Thyroid] 30 mg PO MOWEFR Metoprolol Succinate (ER) [Toprol Xl] 25 mg PO DAILY Atorvastatin [Lipitor] 40 mg PO DAILY Ubidecarenone [Co Q-10] 100 mg PO DAILY Discharge Medication List Thyroid,Pork [[place] Thyroid] 45 mg PO SUTUTHSA 01/21/14 [History] Calcium Carbonate [Calcium] 600 mg PO DAILY 01/21/19 [History] Cholecalciferol (Vitamin D3) [Vitamin D3] 2,000 - 4,000 unit PO DAILY 01/21/19 [History] Progesterone, Micronized [Progesterone] 190 mg PO DAILY 05/26/19 [History] Apixaban [Eliquis] 5 mg PO HS 02/14/22 [History] Atorvastatin [Lipitor] 40 mg PO DAILY 02/14/22 [History] Hrt Pellet Insertion 02/14/22 [History] Metoprolol Succinate (ER) [Toprol Xl] 25 mg PO DAILY 02/14/22 [History] Thyroid, Pork [[place] Thyroid] 30 mg PO MOWEFR 02/14/22 [History] Ubidecarenone [Co Q-10] 100 mg PO DAILY 02/14/22 [History] Flecainide [Tambocor] 50 mg PO Q12HR #180 tablet 02/19/22 [Rx] Follow up Appointment(s)/Referral(s): Kyle Rich MD [STAFF PHYSICIAN] - 1 Week (Dr. Rich stated to keep appointment with Dr. Mosqueda that is already scheduled and see him in 2-3 months.) Patient Instructions/Handouts: Cardiac Ablation (DC) Activity/Diet/Wound Care/Special Instructions: Post EP study - Ablation instructions 1. Keep access sites dry for 2 days. 2. No heavy lifting or straining for 2 days. 3. Avoid bending the hips repeatedly for 2 days. 4. You may go up and down stairs slowly Call if the following is noted 1. Bleeding, increasing swelling or pain at the access sites. 2. Increasing chest discomfort, especially upon taking a deep breath. 3. Increasing shortness of breath, at rest or with exertion. 4. Undue cough / phlegm 5. Difficulty or pain while swallowing. 6. Pain or change in color in the extremities. 7. Fever, chills, rigors. 8. Increasing headache or neurologic symptoms. 9. Dizziness, fainting, palpitations Continue ELIQUIS for 3 months Medication flecainide 50 mg twice daily Stop fish oil completely Discharge Disposition: HOME SELF-CARE
== END 2022-02-20 12:23 | disposition home or self-care (01) ==
LOC: CATHEP 05:52 → 6NMEDSUR 10:37 → 3SCARD 13:50 → CATHEP 02-20 12:23
PROVIDERS: ATTEND Internal Medicine Clinical Cardiac Electrophysiology
DX: I48.0 Paroxysmal atrial fibrillation (principal); E03.9 Hypothyroidism, unspecified; Z20.822 Contact with and (suspected) exposure to COVID-19; Z79.01 Long term (current) use of anticoagulants; Z79.899 Other long term (current) drug therapy; Z79.890 Hormone replacement therapy
CPT/HCPCS: 93656; 87635; C1894 ×2; C1769 ×5; C1760; C1730 ×2; C1759; C1893; C1733; C1766; J2250; J2720; J1644 ×2; J2405; J2001; J3010; J1100; J0131; J2370; J0330; J2704; Q9967; 93609; 93662

== ENCOUNTER → 2022-04-26 | Outpatient (CLI) | payer BC ==
--- NOTE | 2022-04-26 15:14 | MM ---
Reason for Exam: Screening (asymptomatic). Last screening mammogram was performed 12 month(s) ago. Patient History: Menarche at age 12. First Full-Term at age 21. Postmenopausal. Patient has history of breast feeding. Estrogen for 10 years, 7 months. Currently using Progesterone, for 5 years. Hormonal Contraceptives for 3 months starting at age 19. Risk Values: Sabine 5 year model risk: 1.4%. NCI Lifetime model risk: 6.0%. Prior Study Comparison: 01/21/2019 Bilateral Screening Mammogram, [facility]. 04/21/2020 Bilateral Screening Mammogram, [facility]. 04/25/2021 Bilateral Screening Mammogram, [facility]. Tissue Density: The breast tissue is heterogeneously dense. This may lower the sensitivity of mammography. Findings: Analyzed By CAD. Stable asymmetric prominent tissue in the right breast upper outer aspect. Vascular calcification is redemonstrated bilaterally. Stable benign-appearing bilateral axillary lymph nodes. There is no suspicious group of microcalcifications or new suspicious mass in either breast. Overall Assessment: Benign, BI-RAD 2 Management: Screening Mammogram of both breasts in 1 year. A clinical breast exam by your physician is recommended on an annual basis and results should be correlated with mammographic findings. Electronically signed and approved by: Darwin Ng M.D.
== END | disposition home or self-care (01) ==
LOC: RADMAMWWP 10:18
PROVIDERS: ATTEND Obstetrics & Gynecology
DX: Z12.31 Encounter for screening mammogram for malignant neoplasm of breast (principal); Z78.0 Asymptomatic menopausal state
CPT/HCPCS: 77067

== ENCOUNTER → 2022-07-13 | Outpatient (CLI) | payer BC ==
[2022-07-13 18:34] LABS: HGB 13.4 g/dL (12.0-15.0); MCH 30.7 pg (27.0-32.0); MCHC 31.9 g/dL (32.0-37.0); MCV 96.1 fL (80.0-97.0); Mean Platelet Volume 10.4 fL (9.5-12.2); NRBC Per 100 WBC 0 /100 WBCS (0.0-0.0); Platelet Count 307 X 10*3/uL (140-440); RBC 4.37 X 10*6/uL (4.10-5.20); RDW 13.1 % (11.5-14.5); WBC 6.58 X 10*3/uL (4.50-10.00)
[2022-07-13 18:52] LABS: African American GFR (CKD) 73.7 (60.0-200.0); Anion Gap 9.6 mmol/L (10.00-18.00); Blood Urea Nitrogen 14.5 mg/dL (9.0-27.0); Carbon Dioxide 26.5 mmol/L (20.0-27.5); Non-African American GFR(CKD) 63.6 (60.0-200.0); Potassium 4.6 mmol/L (3.5-5.5)
== END | disposition home or self-care (01) ==
LOC: LABPAT 10:15
PROVIDERS: ATTEND Internal Medicine Clinical Cardiac Electrophysiology
DX: Z01.812 Encounter for preprocedural laboratory examination (principal); I48.0 Paroxysmal atrial fibrillation
CPT/HCPCS: 80051; 82565; 84520; 85027

== ENCOUNTER 2022-07-23 08:26 | Day surgery (SDC) | payer BC ==
[2022-07-19 14:35] VITALS: BMI 28.3
[~2022-07-23 08:26] MED LIST changes: -ONDANSETRON 4 MG/2 ML VIAL IVP ONE; +fentaNYL (PF) 50 MCG/ML 2 ML AMP IV PRN
[2022-07-23] MEDS ORDERED: SODIUM CHLORIDE 0.9% 1,000 ML IV ONE (08:51)
[2022-07-23] MEDS ORDERED: MIDAZOLAM 2 MG/2 ML VIAL ONE (09:10)
[2022-07-23] MEDS ORDERED: ONDANSETRON 4 MG/2 ML VIAL ONE (09:10)
[2022-07-23] MEDS ORDERED: SUCCINYLCHOLINE CHLORIDE 200 MG/10 ML VIAL IV ONE (09:10)
[2022-07-23] MEDS ORDERED: ePHEDrine 50 MG/ML 1 ML VIAL ONE (09:10)
[2022-07-23] MEDS ORDERED: DEXAMETHASONE SOD PHOS (MDV) 100 MG/10 ML VIAL ONE (09:10)
[2022-07-23] MEDS ORDERED: fentaNYL (PF) 50 MCG/ML 2 ML AMP ONE (09:10)
[2022-07-23] MEDS ORDERED: LIDOCAINE 2% INJ 20 MG/ML (2 ML VIAL) ONE (09:10)
[2022-07-23] MEDS ORDERED: HEPARIN SODIUM,PORCINE 10,000 UNIT/ML 1 ML VIAL ONE (09:10)
[2022-07-23] MEDS ORDERED: PROPOFOL 10 MG/ML 20 ML VIAL IV ONE (09:10)
--- NOTE | 2022-07-23 09:46 | P.HPCAR ---
History of Present Illness This is Dr. Rich dictating an H/P on this patient The patient was interviewed and examined IMPRESSION / ASSESSMENT: Recurrent paroxysmal atrial fibrillation despite PVI Failed flecainide Failed Multaq PLAN: Redo right superior pulmonary vein Watch for phrenic nerve paresis Left atrial linear ablation Continue anticoagulation HPI Patient continues to experience episodes of palpitations After her PVI VT did not with low-dose flecainide which failed Subsequently Multaq was also used that worked initially but she has started experiencing recurrent episodes now No recent chest discomfort dizziness syncope Continue senna palpitations ROS: No fever chills or rigors, no cough, phlegm or expectoration, no nausea, vomiting or diarrhea, no hematuria, dysuria, no musculoskeletal complaints, no strokes or seizures, no skin lesions. EXAMINATION: Afebrile 98.8F blood pressure 130/80 mmHg normal pulse ox Breath sounds are clear no rhonchi no crackles Normal heart sounds Soft abdomen No extremity edema No JVD REVIEW OF LABS, ECG & MEDICAL DATA On metoprolol succinate and ELIQUIS and atorvastatin Multaq has been held for 2 days Physical Exam Vitals: Vital Signs Temp Pulse Resp BP Pulse Ox 07/23/22 08:56 98.8 F 67 16 130/80 97 Intake and Output 07/22/22 07/23/22 07/23/22 22:59 06:59 14:59 Intake Total 50 Balance 50 Intake: IV 50 Other: Weight 71.6 kg Past Medical History Past Medical History: Atrial Fibrillation, GI Bleed, Hearing Disorder / Deafness, Hyperlipidemia, Osteoarthritis (OA), Thyroid Disorder Additional Past Medical History / Comment(s): Benign postural vertigo, hx parathyroid tumor, osteopenia, diverticulosis, hard of hearing, GI bleed in 2000. History of Any Multi-Drug Resistant Organisms: None Reported Past Surgical History: Orthopedic Surgery, Tubal Ligation Additional Past Surgical History / Comment(s): Parathyroid tumor removed. Colonoscopies. Right shoulder surgery, knee scope Left knee 2019 arthroscopy and meniscus repair. Past Anesthesia/Blood Transfusion Reactions: Motion Sickness, Postoperative Nausea & Vomiting (PONV) Past Psychological History: No Psychological Hx Reported Smoking Status: Former smoker Past Alcohol Use History: Occasional Additional Past Alcohol Use History / Comment(s): Started smoking at age 16, quit at age 28, smoked 1/2ppd. Past Drug Use History: None Reported - Past Family History Father Family Medical History: Cancer Additional Family Medical History / Comment(s): Pancreatic cancer. Mother Family Medical History: CVA/TIA Sister(s) Family Medical History: CVA/TIA Physical Examination Vital Signs Temp Pulse Resp BP Pulse Ox 07/23/22 08:56 98.8 F 67 16 130/80 97 Intake and Output 07/22/22 1207/23/22 22:59 06:59 14:59 Intake Total 50 Balance 50 Intake: IV 50 Other: Weight 71.6 kg Results Current Medications Generic Name Dose Route Start Last Admin Trade Name Freq PRN Reason Stop Dose Admin Fentanyl Citrate 50 mcg 07/23/22 07:00 Fentanyl (Pf) 50 Mcg/Ml 2 Ml Amp IV 07/23/22 23:00 Q3M PRN Phase I - Pain Control Sodium Chloride 1,000 mls @ 20 mls/hr 07/23/22 05:49 Saline 0.9% IV 08/22/22 05:50 .Q24H SUJIT Lactated Ringer's 1,000 mls @ 20 mls/hr 07/23/22 05:49 Lactated Ringers IV 08/22/22 05:50 .Q24H SUJIT Midazolam HCl 2 mg 07/23/22 05:49 Midazolam 2 Mg/2 Ml Vial IV 07/24/22 05:50 ONCE PRN Pre-Op Anxiety Intake and Output 07/22/22 07/23/22 07/23/22 22:59 06:59 14:59 Intake Total 50 Balance 50 Intake: IV 50 Other: Weight 71.6 kg Patient Weight 07/24/22 06:59 Weight 71.6 kg
[2022-07-23] MEDS ORDERED: HEPARIN SOD,PORK IN 0.45% NACL 25,000 UNIT in 0.45% NACL 1 250ML.BAG IV ONE (09:47)
[2022-07-23] MEDS ORDERED: LIDOCAINE 1% INJ 10MG/ML (30 ML VIAL-PF) SQ ONE (09:57)
[2022-07-23] MEDS ORDERED: IOPAMIDOL-370 100ML BTL INJ ONE (11:47)
[2022-07-23] MEDS ORDERED: HEPARIN SODIUM (1,000 UNIT/ML) 1,000 UNIT in SODIUM CHLORIDE 0.9% 1,000 ML IRRIGATION ONE (12:06)
[2022-07-23] MEDS ORDERED: ISOPROTERENOL 250 MCG/1.25 ML SYR IV ONE (13:00)
[2022-07-23] MEDS ORDERED: ACETAMINOPHEN TAB 325 MG TAB PO PRN (13:06)
--- NOTE | 2022-07-23 13:41 | P.EPPROC ---
- EP Procedure Note Electrophysiology Procedure Note: PROCEDURE A. fib ablation DIAGNOSIS Paroxysmal Atrial fibrillation, symptomatic, refractory to therapy with PVI in the past as well as flecainide and later Multaq RESULT No left atrial appendage mass seen on intracardiac echo Recovery of pulmonary vein potentials in the left superior pulmonary vein Induction of atrial fibrillation and successful termination of atrial fibrillation during LSPV ablation Repeat induction of atrial fibrillation after this but successful termination with ablation of the upper tributary of the left inferior pulmonary vein Thereafter atrial fibrillation could not be induced despite very aggressive protocol to attempt to induce it from 2 sites both on and off Isuprel Successful A. fib ablation/pulmonary vein isolation of all veins using cryo- ablation Complete entrance block in all 4 veins confirmed No evidence for phrenic nerve injury Successful left atrial roof ablation with elimination of all electrograms and without any Successful Ablation of the Left Atrial Septum, Posterior to the Transseptal Puncture Successful Ablation of the Lesion of the Vena Gabriel in between the Left Superior and Left Inferior Pulmonary Veins with Complete Electrogram Ablation Esophageal deflection YES, left-sided esophagus PROCEDURE DETAILS Patient was brought to the EP lab in a fasting state after obtaining written informed consent. Procedure performed under general anesthesia Esophagus was intubated. Esophageal temperature monitoring with circa catheter. Esophageal deflection with an endoscope to avoid hypothermia of the esophagus. After initial muscle relaxant use, muscle relaxants were not given thereafter in order to assess phrenic nerve during procedure. Patient prepped and draped as per protocol Cryo ablation-set up with standard preparation of the cryoablation tools done. Femoral Venous access obtained on the right and left groins and sheaths placed Diagnostic catheters for the high right atrium, phrenic nerve stimulation and pacing, His bundle, coronary sinus placed Intracardiac echo catheter placed. Long sheath placed in the right atrium Left and right transseptal catheterization performed under intracardiac echo guidance. Intravenous heparin with aCT above 300 Later, catheter positioning and balloon positioning in the left atrium and pulmonary veins, under intracardiac echo guidance Diagnostic EP study with coronary sinus pacing and recording Baseline measurements: Sinus cycle length 1080 ms, MO interval 104 ms, QRS 91 ms and QT interval 438 ms AH 54 ms and HV 38 ms Sinus recovery times at 600, 504 100 ms were 1501, 1443 and 1783 ms Character sinus recovery times were mildly prolonged at a cycle length of 4 ms AV node Wenckebach block 260 ms VA Wenckebach block for 490 ms Atrial fibrillation was induced with burst stimulation at 200 ms from the coronary sinus poles, in the baseline state After completion of left superior pulmonary vein ablation and the upper branch of the left inferior pulmonary vein ablation, no further atrial fibrillation could be induced on or off Isuprel On Isuprel burst stimulation was performed single and double extra stimulation performed from the high right atrium and from the Reji sinus A detailed EP study is performed from both sites during Isuprel recovery LV pacing was performed with the catheter in the LV vein, epicardially Parahisian pacing is performed Sanjana response is noted No further SVT Transseptal catheterization performed RA pressure 9/2/6 LA pressure 18//10 Transseptal catheterization performed with standard sheath. The cryoablation sheath was then placed with an over the wire exchange without any acute complications. The cryoablation balloon was placed in the office of each pulmonary vein and all 4 pulmonary veins were isolated. IV dye was injected to confirm occlusion. Goal: achieve complete occlusion of the pulmonary vein, achieve -30 degrees C at 30 seconds and achieve -40 degrees C at 60 seconds and a time to effect of less than 60 seconds. If not, the balloon was repositioned to obtain this result The left superior pulmonary vein showed recovery of pulmonary vein potentials Atrial fibrillation was induced with burst stimulation from the coronary sinus The first cryoablation lesion for the LS V was performed during atrial fib rillation. Atrial fibrillation terminated during this ablation. It 30 seconds to isolate this vein However we were able to induce atrial fibrillation once again This time the superior branch of the left inferior pulmonary vein was cannulated and ablation was performed in between the left superior and left inferior pulmonary veins. Atrial fibrillation was once again terminated Thereafter atrial fibrillation could NOT be induced with aggressive stimulation with on and off Isuprel with burst stimulation as well as extrastimuli up to triple extrastimuli After completion of Cryoblation with durations from 180-240 seconds, entrance block was confirmed with the Attain circular catheter in a roving fashion around the antrum of the pulmonary veins Phrenic nerve pacing was performed from the SVC, right innominate vein area and diaphragm voltage was monitored. Diaphragmatic contractions were also monitored manually for strength of contraction. Left atrial septal ablation was performed and electrograms were ablated successfully Left atrial roof ablation was performed and the electrograms were completely ablated without leaving any gaps in this line Ablation was performed in the region of the vena Gabriel, in between the left superior and left inferior pulmonary veins with complete electrogram elimination At the end of the procedure the Achieve catheter was once again used to check f or entrance block Phrenic nerve stimulation was performed to confirm diaphragmatic stimulation the end of the procedure Cine fluoroscopy was performed at the very end of the procedure to confirm movem ent of both diaphragms with inspiration and expiration At the end of the procedure the patient was extubated Venous sheaths were removed and hemostasis assured with a closure device PROCEDURES PERFORMED Diagnostic EP study with attempted arrhythmia induction CS pacing and recording LV pacing and recording Left and right transseptal catheterization Catheter the mapping of the tachycardia Intracardiac echocardiography Pulmonary vein isolation with transseptal and comprehensive EPS, 92207 Drug infusion, +[id number] Left atrial roof line, +[id number] Linear ablation, left atrium, +[id number] Next
--- NOTE | 2022-07-23 13:44 | P.PRLE ---
RE: LeroyMaricarmen Dear Isma Mrs. Harper has had recurrences of atrial fibrillation despite successful ablation and isolation of the pulmonary veins previously. She has also failed Multaq and flecainide I brought her back to the EP lab in the was recovery of the pulmonary vein potentials within the left superior pulmonary vein Atrial fibrillation was terminated during left superior pulmonary vein ablation as well as ablation of the superior branch of the left inferior pulmonary veins Thereafter atrial fibrillation could not be induced Be performed a complete antral isolation of all pulmonary veins as well as left atrial septal ablation and left atrial roof ablation Following that, despite a thorough EP study, both on and off Isuprel from multiple different sites, atrial fibrillation could not be induced If I would recommend stopping Multaq and discontinuation of all antiarrhythmic therapies for now She will continue ELIQUIS for at least 3 more months Thank you for entrusting me with the care of the patient Warm regards Sincerely Kyle Rich
[2022-07-23] MEDS ORDERED: ACETAMINOPHEN IV (For NPO) 1,000 MG in EMPTY BAG 1 BAG IVPB ONE (15:00)
[2022-07-23] MEDS: LACTATED RINGERS 1,000 ML IV SCH ×2 (15:11→20:19)
[2022-07-23] MEDS: SODIUM CHLORIDE 0.9% 1,000 ML IV SCH ×2 (15:12→20:19)
[2022-07-23] MEDS: APIXABAN 5 MG TAB PO SCH (20:18)
[2022-07-24 03:49] VITALS: RESP 16
[2022-07-24 06:45] VITALS: BP 124/79; PULSE 68; TEMP 97.9
[2022-07-24] MEDS: APIXABAN 5 MG TAB PO SCH (08:05)
[2022-07-24] MEDS ORDERED: ATORVASTATIN 40 MG TAB PO SCH (09:00)
[2022-07-24] MEDS ORDERED: METOPROLOL SUCCINATE (ER) 25 MG TAB.ER.24H PO SCH (09:00)
--- NOTE | 2022-07-24 17:14 | P.DS ---
Providers Attending physician: Kyle Rich [facility] Course: Patient was resting comfortably in bed She feels well No chest discomfort dizziness lightheadedness or palpitations Rhythm is regular Her examination Afebrile 97.9F pulse rate in the 60s and 70s normal sinus rhythm Blood pressure 124/79 mmHg Heart sounds S1 and S2 normal no rub Breath sounds are clear no rhonchi no crackles Abdomen soft Next 70s are warm Groins of healed well Impression A. fib ablation with PVI and left atrial roof ablation Arrhythmogenic source was the left superior pulmonary vein Termination of atrial fibrillation occurred when the left severe pulmonary vein was ablated as well as the upper tributary of the left inferior pulmonary vein A. fib was not inducible thereafter both on and off Isuprel with a detailed atrial and coronary sinus stim protocol Successful AF ablation Plan the months of anticoagulation, uninterrupted Explained to the patient Post EPS instructions explained Follow-up with Dr. Mosqueda in the week Patient Condition at Discharge: Stable Plan - Discharge Summary Discharge Rx Participant: Yes New Discharge Prescriptions: Discontinued Dronedarone [Multaq] 400 mg PO BID No Action Thyroid,Pork [[place] Thyroid] 45 mg PO SUTUTH Progesterone, Micronized [Progesterone] 170 mg PO DAILY Apixaban [Eliquis] 5 mg PO BID Hrt Pellet Insertion 1 applic .ROUTE DIRECTED Thyroid, Pork [[place] Thyroid] 40 mg PO MOWEFR Metoprolol Succinate (ER) [Toprol Xl] 25 mg PO DAILY Atorvastatin [Lipitor] 40 mg PO DAILY Discharge Medication List Thyroid,Pork [[place] Thyroid] 45 mg PO SUTUTHSA 01/21/14 [History] Progesterone, Micronized [Progesterone] 170 mg PO DAILY 05/26/19 [History] Apixaban [Eliquis] 5 mg PO BID 02/14/22 [History] Atorvastatin [Lipitor] 40 mg PO DAILY 02/14/22 [History] Hrt Pellet Insertion 1 applic .ROUTE DIRECTED 02/14/22 [History] Metoprolol Succinate (ER) [Toprol Xl] 25 mg PO DAILY 02/14/22 [History] Thyroid, Pork [[place] Thyroid] 40 mg PO MOWEFR 02/14/22 [History] Follow up Appointment(s)/Referral(s): Juan Mosqueda DO [STAFF PHYSICIAN] - 08/01/22 1:45 pm Patient Instructions/Handouts: Cardiac Ablation (DC) Activity/Diet/Wound Care/Special Instructions: Post EP study - Ablation instructions 1. Keep access sites dry for 2 days. 2. No heavy lifting or straining for 2 days. 3. Avoid bending the hips repeatedly for 2 days. 4. You may go up and down stairs slowly Call if the following is noted 1. Bleeding, increasing swelling or pain at the access sites. 2. Increasing chest discomfort, especially upon taking a deep breath. 3. Increasing shortness of breath, at rest or with exertion. 4. Undue cough / phlegm 5. Difficulty or pain while swallowing. 6. Pain or change in color in the extremities. 7. Fever, chills, rigors. 8. Increasing headache or neurologic symptoms. 9. Dizziness, fainting, palpitations Stop Multaq Continue all other medications Continue ELIQUIS Discharge Disposition: HOME SELF-CARE
== END 2022-07-24 11:43 | disposition home or self-care (01) ==
LOC: CATHEP 08:26 → 6NMEDSUR 12:50 → CATHEP 07-24 11:43
PROVIDERS: ATTEND Internal Medicine Clinical Cardiac Electrophysiology
DX: I48.0 Paroxysmal atrial fibrillation (principal); E78.5 Hyperlipidemia, unspecified; M19.90 Unspecified osteoarthritis, unspecified site; M85.80 Other specified disorders of bone density and structure, unspecified site; R07.89 Other chest pain; Z79.01 Long term (current) use of anticoagulants; Z79.890 Hormone replacement therapy; Z79.899 Other long term (current) drug therapy; Z87.891 Personal history of nicotine dependence
CPT/HCPCS: 93662; 93613; 93656; 93657; C1759; C1894 ×2; C1769 ×4; C1760; C1730 ×2; C1731; C1893; C1733; C1766; J2250; J0330; J1644 ×3; J2405; J2001 ×2; J3010; J1100; J2704; Q9967

== ENCOUNTER → 2023-07-10 | Outpatient (CLI) | payer BC ==
--- NOTE | 2023-07-11 10:44 | MM ---
Reason for Exam: Screening (asymptomatic). Last mammogram was performed 1 year(s) and 2 month(s) ago. Patient History: Menarche at age 12. First Full-Term at age 21. Postmenopausal. Patient has history of breast feeding. Estrogen for 10 years, 7 months. Currently using Progesterone, for 5 years. Hormonal Contraceptives for 3 months starting at age 19. Risk Values: Sabine 5 year model risk: 1.4%. NCI Lifetime model risk: 5.8%. Prior Study Comparison: 04/21/2020 Bilateral Screening Mammogram, [facility]. 04/25/2021 Bilateral Screening Mammogram, [facility]. 04/26/2022 Bilateral MG screening mammo w CAD, [facility]. Tissue Density: The breast tissue is heterogeneously dense. This may lower the sensitivity of mammography. Findings: Analyzed By CAD. There is no suspicious group of microcalcifications or new suspicious mass in either breast. Overall Assessment: Benign, BI-RAD 2 Management: Screening Mammogram of both breasts in 1 year. . Patient should continue monthly self-breast exams. A clinical breast exam by your physician is recommended on an annual basis. This exam should not preclude additional follow-up of suspicious palpable abnormalities. Note on Sabine scores and lifetime risk: 1. A Sabine score greater than 3% is considered moderate risk. If this is the case, consider specialist referral to assess eligibility for a risk reducing agent. 2. If overall lifetime risk for the development of breast cancer is 20% or higher, the patient may qualify for future screening with alternating mammogram and breast MRI. Electronically signed and approved by: Kedar Jimenez M.D. Radiologis
== END | disposition home or self-care (01) ==
LOC: RADMAMWWP 07:55
PROVIDERS: ATTEND Obstetrics & Gynecology
DX: Z12.31 Encounter for screening mammogram for malignant neoplasm of breast (principal); Z78.0 Asymptomatic menopausal state
CPT/HCPCS: 77063; 77067

== ENCOUNTER → 2023-07-26 | Outpatient (CLI) | payer BC ==
--- NOTE | 2023-07-26 12:05 | BD ---
EXAMINATION TYPE: Axial Bone Density DATE OF EXAM: 07/26/2023 CLINICAL HISTORY: 63 years old Female. ICD-10 CODE: M85.851 OTH DISRD OF BONE DENSITY AND STRUCTURE, R Height: 61 Weight: 148.8 FRAX RISK QUESTIONS: Alcohol (3 or more units per day): no Family History (Parent hip fracture): no Glucocorticoids (More than 3mos): no History of Fracture in Adulthood: yes Secondary Osteoporosis: 1. Type 1 Diabetes: no 2. Hyperthyroidism: no 3. Menopause before 45: no 4. Malnutrition: no 5. Chronic liver disease: no Rheumatoid Arthritis: no Current Tobacco Use: no RISK FACTORS HISTORY OF: Hip Fracture (Right/Left): no Spine Fracture: no History of Wrist Fracture: no Surgery to Spine/Hip(right/left)/Wrist (right/left): no Family History of Osteoporosis: mother Active: yes Diet low in dairy products/other sources of calcium: yes Postmenopausal woman: yes Take estrogen and/or progesterone medications: Pellet insertion How long: past 10 years Lost more than 2 inches in height since high school: no Frequent falls: no Poor Health: no Hyperparathyroidism: no Adrenal Insufficiency: no MEDICATIONS: Prednisone or other steroids: no Thyroid Medications: Armor Thyroid How Long: past 10 years Osteoporosis Medications: no Additional Medications: Cholesterol Meds, Multi Vit., Vit D, Calcium Additional History: EXAM MEASUREMENTS: Bone mineral densitometry was performed using the [employer] Messaging System. Bone mineral density as measured about the Lumbar spine is: ----- L1-L4(G/cm2): 1.088 T Score Values are as follows: ----- L1: -2.7 ----- L2: -1.7 ----- L3: -0.2 ----- L4: 0.5 ----- L1-L4: -0.8 Z Score Values are as follows: ----- L1: -1.2 ----- L2: -0.2 ----- L3: 1.3 ----- L4: 2.0 ----- L1-L4: 0.7 Bone mineral density has: increased 9.0 % since study of: 04/25/2021 Bone mineral density about the R hip (g/cm2): 0.960 Bone mineral density about the L hip (g/cm2): 1.004 T Score values are as follows: -----R Neck: -0.7 -----L Neck: -0.2 -----R Total: -0.4 -----L Total: 0.0 Z Score values are as follows: -----R Neck: 0.6 -----L Neck: 1.2 -----R Total: 0.7 -----L Total: 1.1 Bone mineral density has: increased 6.3 % since study of: 04/25/2021 FRAX%s: The graph provided illustrates a 12.4% chance for a major osteoporotic fx and a 0.7% chance f or the hips probability for fx in 10 years time. IMPRESSION: Osteoporosis (T Score less than -2.5). There is increased fracture risk and therapy is usually indicated based on age. Re-Screen 1-2 years. NOTE: T-SCORE=SD OF THE YOUNG ADULT MEAN.
== END | disposition home or self-care (01) ==
LOC: RADBDWWP 09:52
PROVIDERS: ATTEND Internal Medicine
DX: M81.0 Age-related osteoporosis without current pathological fracture (principal); M85.88 Other specified disorders of bone density and structure, other site; Z78.0 Asymptomatic menopausal state
CPT/HCPCS: 77080

== ENCOUNTER 2024-02-25 09:59 | Day surgery (SDC) | payer BC, MEDICARE ==
[2024-02-19 16:06] VITALS: BMI 27.3
[2024-02-25 10:42] VITALS: TEMP 98.6
[2024-02-25] MEDS: LACTATED RINGERS 1,000 ML IV SCH (10:44)
[2024-02-25] MEDS: LIDOCAINE 1% (10MG/ML) FOR IV START INTRADERMA PRN (10:44)
[2024-02-25] MEDS: IV FLUID CONTINUATION 1,000 ML IV ONE (10:44)
[2024-02-25] MEDS ORDERED: LIDOCAINE 1% INJ 10MG/ML (20 ML MDV) ONE (11:52)
[2024-02-25] MEDS ORDERED: PROPOFOL 10 MG/ML 20 ML VIAL IV ONE (11:52)
--- NOTE | 2024-02-25 12:10 | P.PCN ---
Date of Procedure: 02/25/24 Procedure(s) Performed: BRIEF HISTORY: Patient is a 63-year-old pleasant white female scheduled for an elective colonoscopy as a part of evaluation of history of colon polyps. PROCEDURE PERFORMED: Colonoscopy. PREOPERATIVE DIAGNOSIS: History of colon polyps. IV sedation per Anesthesia. PROCEDURE: After informed consent was obtained, the patient, was brought into the endoscopy unit. IV sedation was administered by Anesthesia under continuous monitoring. Digital rectal examination was normal. Initially the Olympus CF-160 flexible video colonoscope was then inserted in the rectum, gradually advanced into the cecum without any difficulty. Careful examination was performed as the scope was gradually being withdrawn. Ileocecal valve and the appendiceal orifice were visualized and appeared normal. Prep was excellent. Mucosa of the cecum, ascending colon, transverse colon, descending colon, sigmoid colon, and rectum appeared normal. Scattered sigmoid diverticulosis retroflexion was performed in the rectum and no lesions were seen. The patient tolerated the procedure well. IMPRESSION: Normal-appearing colon from rectum to cecum with no evidence of colorectal neoplasia Scattered sigmoid diverticulosis. RECOMMENDATIONS: Findings of this examination were discussed with the patient as well as her family. She was advised to have repeat screening colonoscopy in 10 years.
[2024-02-25 12:31] VITALS: BP 150/67; PULSE 62; RESP 16
== END 2024-02-25 12:57 | disposition home or self-care (01) ==
LOC: ORWHC2ENDO 09:59
PROVIDERS: ATTEND Internal Medicine Gastroenterology
DX: K57.30 Diverticulosis of large intestine without perforation or abscess without bleeding (principal); E78.5 Hyperlipidemia, unspecified; I49.9 Cardiac arrhythmia, unspecified; I48.91 Unspecified atrial fibrillation; E07.9 Disorder of thyroid, unspecified; Z87.891 Personal history of nicotine dependence; Z87.19 Personal history of other diseases of the digestive system; Z79.899 Other long term (current) drug therapy
CPT/HCPCS: 45378; J2001; J2704

== ENCOUNTER → 2024-07-13 | Outpatient (CLI) | payer MEDICARE ==
--- NOTE | 2024-07-13 15:07 | MM ---
Reason for Exam: Screening (asymptomatic). Last mammogram was performed 1 year(s) and 1 month(s) ago. Patient History: Menarche at age 12. First Full-Term at age 21. Postmenopausal. Patient has history of breast feeding. Estrogen for 10 years, 7 months. Currently using Progesterone, for 5 years. Hormonal Contraceptives for 3 months starting at age 19. Risk Values: Sabine 5 year model risk: 1.5%. NCI Lifetime model risk: 5.6%. Prior Study Comparison: 04/25/2021 Bilateral Screening Mammogram, [facility]. 04/26/2022 Bilateral MG screening mammo w CAD, [facility]. 07/10/2023 Bilateral MG 3D screening mammo w/cad, [facility]. Tissue Density: The breasts are heterogeneously dense, which may obscure small masses. Findings: Analyzed By CAD. Increased breast density on both sides. Findings suggest interval weight loss. Clinically correlate. An asymmetric density superior right MLO view middle depth appears entirely new and further evaluation is recommended. Possible island of tissue given the lack of a correlating finding on the CC view. Otherwise, no suspicious changes. Overall Assessment: Incomplete: need additional imaging evaluation, BI-RAD 0 Management: Special View Mammogram of the right breast. [facility] will attempt to contact patient to return for supplemental views and ultrasound if indicated. [facility], , 07/13/2024 3:04 PM. Electronically signed and approved by: Chirag Young M.D. Radiologist
== END | disposition home or self-care (01) ==
LOC: RADMAMWWP 09:42
PROVIDERS: ATTEND Obstetrics & Gynecology
DX: Z12.31 Encounter for screening mammogram for malignant neoplasm of breast (principal); Z78.0 Asymptomatic menopausal state; R92.333 Mammographic heterogeneous density, bilateral breasts
CPT/HCPCS: 77063; 77067

== ENCOUNTER → 2024-07-20 | Outpatient (CLI) | payer MEDICARE ==
--- NOTE | 2024-07-20 19:27 | MM ---
Reason for Exam: Additional evaluation requested from abnormal screening. Last screening mammogram was performed less than 1 month ago. Patient History: Menarche at age 12. First Full-Term at age 21. Postmenopausal. Patient has history of breast feeding. Currently using Estrogen, starting at age 49. Currently using Progesterone, starting at age 60. Hormonal Contraceptives for 3 months starting at age 19. Risk Values: Sabine 5 year model risk: 1.5%. NCI Lifetime model risk: 5.6%. Prior Study Comparison: 12/10/2017 Bilateral Screening Mammogram, [facility]. 01/21/2019 Bilateral Screening Mammogram, [facility]. 04/21/2020 Bilateral Screening Mammogram, [facility]. 04/25/2021 Bilateral Screening Mammogram, [facility]. 04/26/2022 Bilateral MG screening mammo w CAD, [facility]. 07/10/2023 Bilateral MG 3D screening mammo w/cad, [facility]. 07/13/2024 Bilateral MG 3D screening mammo w/cad, [facility]. Tissue Density: Right: The breasts are heterogeneously dense, which may obscure small masses. Findings: Analyzed By CAD. The pattern is symmetrical. No persistent suspicious density No suspicious groups of microcalcifications, spiculated or lobular masses, architectural distortion or other secondary signs of malignancy are mammographically apparent. Overall Assessment: Probably benign, BI-RAD 3 Management: Diagnostic Mammogram of the right breast in 6 months. A negative mammogram report should not preclude additional follow up of suspicious palpable abnormalities. Patient should continue monthly self breast exam. A clinical breast exam by your physician is recommended on an annual basis and results should be correlated with mammographic findings. Note on Sabine scores and lifetime risk: 1. A Sabine score greater than 3% is considered moderate risk. If this is the case, consider specialist referral to assess eligibility for a risk reducing agent. 2. If overall lifetime risk for the development of breast cancer is 20% or higher, the patient may qualify for future screening with alternating mammogram and breast MRI. [facility], , 07/20/2024 7:24 PM. Electronically signed and approved by: Francisco Shoemaker D.O. Radiologis
== END | disposition home or self-care (01) ==
LOC: RADMAMWWP 09:47
PROVIDERS: ATTEND Obstetrics & Gynecology
DX: R92.8 Other abnormal and inconclusive findings on diagnostic imaging of breast (principal); Z78.0 Asymptomatic menopausal state; R92.331 Mammographic heterogeneous density, right breast
CPT/HCPCS: 77065; G0279; 77061

== ENCOUNTER → 2025-01-26 | Outpatient (CLI) | payer MEDICARE ==
--- NOTE | 2025-01-26 10:42 | MM ---
Reason for Exam: Follow-up at short interval from prior study. Last screening mammogram was performed 6 month(s) ago. Patient History: Menarche at age 12. First Full-Term at age 21. Postmenopausal. Patient has history of breast feeding. Currently using Estrogen, starting at age 49. Currently using Progesterone, starting at age 60. Hormonal Contraceptives for 3 months starting at age 19. Risk Values: Sabine 5 year model risk: 1.5%. NCI Lifetime model risk: 5.6%. Prior Study Comparison: 07/10/2023 Bilateral MG 3D screening mammo w/cad, [facility]. 07/13/2024 Bilateral MG 3D screening mammo w/cad, [facility]. 07/20/2024 Right MG 3D work up w/cad RT, [facility]. Tissue Density: Right: There are scattered areas of fibroglandular density. Findings: Analyzed By CAD. The previously questioned asymmetric density superior right MLO view middle depth has become less pronounced and shows no persisting abnormality on 3-D images. Unchanged upper outer quadrant level asymmetry. No significant change from prior exams. Overall Assessment: Benign, BI-RAD 2 Management: Screening Mammogram of both breasts in 6 months. Results were given to the patient verbally at the time of exam. Patient should continue monthly self-breast exams. A clinical breast exam by your physician is recommended on an annual basis. This exam should not preclude additional follow-up of suspicious palpable abnormalities. Note on Sabine scores and lifetime risk: 1. A Sabine score greater than 3% is considered moderate risk. If this is the case, consider specialist referral to assess eligibility for a risk reducing agent. 2. If overall lifetime risk for the development of breast cancer is 20% or higher, the patient may qualify for future screening with alternating mammogram and breast MRI. [facility], , 01/26/2025 10:39 AM. Electronically signed and approved by: Chirag Young M.D. Radiologist
== END | disposition home or self-care (01) ==
LOC: RADMAMWWP 10:22
PROVIDERS: ATTEND Obstetrics & Gynecology
DX: R92.8 Other abnormal and inconclusive findings on diagnostic imaging of breast (principal); R92.321 Mammographic fibroglandular density, right breast; Z78.0 Asymptomatic menopausal state; Z92.0 Personal history of contraception
CPT/HCPCS: 77061; 77065